=== PATIENT | female | born 1950 | race Caucasian/White ===

== ENCOUNTER 2018-12-12 19:30 | Inpatient (IN) | payer MEDICARE, OTHER ==
[2018-12-12 20:54] LABS: #Basophils 0.1 thou/uL (0.0-0.2); #Eosinphils 0.1 thou/uL (0.0-0.7); #Lymphocytes 1.7 thou/uL (1.20-3.40); #Neutrophils 5.7 thou/uL (1.40-6.50); %Basophils 0.9 % (0.0-1.0); %Eosinophils 0.9 % (0.0-10.0); %Lymphocytes 20.1 % (21.0-51.0); %Monocytes 11.2 % (0.0-10.0); %Neutrophils 66.9 % (42.0-75.0); Hemoglobin 10.2 g/dL (12.0-16.0); Mean Corpuscular HGB CONC 32.6 g/dL (32.0-36.0); Mean Corpuscular Hemoglobin 29.8 pg (27.0-31.0); Mean Corpuscular Volume 91.4 fL (78.0-98.0); Mean Platelet Volume 6.5 fL (7.4-10.4); Platelet Count 287 thou/uL (130-400); Red Blood Cell (RBC) Count 3.43 mill/uL (4.20-5.40); White Blood Cell (WBC) Count 8.6 thou/uL (4.8-10.8)
[2018-12-12 20:57] LABS: CKMB 6.6 ng/mL (0-6.6)
[2018-12-12] MEDS ORDERED: Dextrose 50% Abboject 50 ML SYRINGE SLOW IVP PRN (21:25)
[2018-12-12] MEDS ORDERED: HumaLOG 300 UNITS/3 ML VIAL SC PRN (21:25)
[2018-12-12] MEDS ORDERED: Dextrose 5% in Water 1,000 ML IV PRN (21:25)
[2018-12-12 21:36] LABS: ALT (SGPT) Less than 7 U/L (8-55); AST (SGOT) 14 U/L (5-34); Albumin 3.4 g/dL (3.4-4.8); Alkaline Phosphatase 74 U/L (40-150); Anion Gap 12 mmol/L (10-20); BUN (Urea Nitrogen) 24 mg/dL (9.8-20.1); Bilirubin, Total 0.5 mg/dL (0.2-1.2); Calc. Creatinine Clearance 0 mL/min (70-130); Calcium 8.8 mg/dL (7.8-10.44); Carbon Dioxide 25 mmol/L (23-31); Chloride 108 mmol/L (98-107); Estimated GFR-MDRD 61; Globulin 2.5 g/dL (2.4-3.5); Glucose 137 mg/dL (80-115); Potassium 4.2 mmol/L (3.5-5.1); Protein, Total 5.9 g/dL (6.0-8.3); Sodium 141 mmol/L (136-145)
[2018-12-12 23:10] LABS: INR-International Normal Ratio 1.2; Prothrombin Time 15.5 SEC (12.0-14.7)
[2018-12-12 23:31] LABS: Critical Call Chem Troponin I RESULT DECREASING; Troponin I 1.689 ng/mL (< 0.028)
[2018-12-13] MEDS ORDERED: Morphine 4 MG/ML VIAL SLOW IVP PRN (00:23)
[2018-12-13] MEDS ORDERED: Nitroglycerin 0.4 MG TAB (25 Tab Bottle) SL PRN ×2 (00:23→15:13)
[2018-12-13] MEDS ORDERED: Ondansetron PF 4 MG/2 ML Vial IVP PRN (00:23)
[2018-12-13 02:38] LABS: Critical Call Chem Troponin I RESULT DECREASING; Troponin I 1.395 ng/mL (< 0.028)
--- NOTE | 2018-12-13 04:16 | HP ---
PRIMARY CARE PHYSICIAN: Dr. Cruz at [facility]. CHIEF COMPLAINT: Shortness of breath and fatigue. HISTORY OF PRESENT ILLNESS: The patient is a 68-year-old female with past medical history of diabetes, insulin-dependent, and hyperlipidemia, who presents to the emergency department with shortness of breath that has been worsening over the past 2 weeks. The patient denies any history of heart problems including no history of heart failures in the past. The patient denies any chest pain. The patient was seen at the [facility] and transferred after being seen by her cafe or restaurant manager there. The patient was given Lasix and Lovenox full dose. The patient was noted to have elevated BNP of 1100 and troponin positive of 1.94. The patient also had a D-dimer positive. CT angiogram of her chest ruled out PE, but noted to have small to moderate bilateral pleural effusion. The patient does not use oxygen at home. The patient smokes on and off, denies at this point. PAST MEDICAL HISTORY: 1. Diabetes. 2. Hyperlipidemia. PAST SURGICAL HISTORY: 1. Tonsillectomy. 2. Colonoscopy. SOCIAL HISTORY: The patient smokes on occasions. The patient is . Denies any alcohol or illicit drugs at this point. ALLERGIES: DENIES ANY KNOWN ALLERGIES TO MEDICATIONS. FAMILY HISTORY: Significant for coronary artery disease of her father. REVIEW OF SYSTEMS: GENERAL: Reports fatigue and shortness of breath. EYES: Denies any visual changes. EARS: Denies any changes to her hearing. NOSE: Denies any problem with her nose including no new nose bleeding. THROAT: Denies any sore throat. RESPIRATIONS: Reports cough, pure white sputum. CARDIOVASCULAR: Reports dyspnea on exertion. GI: Denies nausea, vomiting, or diarrhea. MUSCULOSKELETAL: Reports bilateral lower extremity edema. SKIN: Negative for rashes. NEUROLOGIC: Denies any confusion. PSYCHIATRIC: Denies any mood disorders. PHYSICAL EXAMINATION: VITAL SIGNS: Blood pressure and heart rate are noted to be within normal limits , respiration rate in 30s. CONSTITUTIONAL: Vitals were reviewed. The patient is afebrile. Normal pulses. HEAD: Atraumatic. EYES: Equal ocular eye movements of the muscles of her eyes. EARS: No gross deformity noted. NOSE: No gross deformity noted. THROAT: No exudate noted. NECK: No lymphadenopathy or JVD noted. RESPIRATIONS: Bilateral crackles noted. No wheezes, rubs, or gallops. The patient was noted to be tachypneic. CARDIOVASCULAR: No murmur, rubs, or gallops. Regular rate and rhythm. ABDOMEN: Soft, nontender, bowel sounds positive. EXTREMITIES: Bilateral 3+ edema noted. NEUROLOGIC: Alert. SKIN: No rashes. PSYCHIATRIC: Normal mood and cooperative. DIAGNOSTIC STUDIES: CT angio of the chest noted to have bilateral pleural effusions and no PE noted at the outside facility. EKG negative for a STEMI. Significant labs include BNP from outside hospital 1100, troponin 1.9 at outside hospital, repeat is 2.148. Other significant labs reviewed including CBC and BMP, all noted to be within normal limits. ASSESSMENT AND PLAN: 1. Non-ST segment elevation myocardial infarction. The patient has positive troponin, likely stress-induced from congestive heart failure, which is a new diagnosis. Cardiology be consulted for a.m., tele, trend troponin. The patient was given aspirin and full dose Lovenox at outside ER. We will continue Lovenox b.i.d. We will admit to tele at this point. We will start the patient on aspirin. 2. Acute congestive heart failure, type and cause unknown at this point. Cardiology consult at a.m. Order placed. We will start Lasix 40 mg IV twice per day. Fluid restriction. Cardiac diet. Echocardiogram in the morning. Ordered tele. We will look at lipid panel in the morning and a.m. labs. 3. Diabetes. We will hold home Januvia and metformin at this point. Continue home Lantus 15 units daily plus SSI low-scale. 4. The patient is full code. 5. Medical power of ip technology transactions attorney, the patient wants her and then her daughter to be medical power of ip technology transactions attorney. 6. Deep venous thrombosis prophylaxis addressed. Job ID: [id number] MTDD
[2018-12-13 06:02] LABS: #Basophils 0.1 thou/uL (0.0-0.2); #Eosinphils 0.3 thou/uL (0.0-0.7); #Lymphocytes 1.6 thou/uL (1.20-3.40); #Monocytes 0.8 thou/uL (0.11-0.59); #Neutrophils 2.9 thou/uL (1.40-6.50); %Basophils 0.9 % (0.0-1.0); %Lymphocytes 28.5 % (21.0-51.0); %Monocytes 14.6 % (0.0-10.0); Hemoglobin 9.8 g/dL (12.0-16.0); Mean Corpuscular HGB CONC 31.2 g/dL (32.0-36.0); Mean Corpuscular Hemoglobin 28.9 pg (27.0-31.0); Mean Corpuscular Volume 92.5 fL (78.0-98.0); Mean Platelet Volume 6.9 fL (7.4-10.4); Platelet Count 281 thou/uL (130-400); RBC Distribution Width 13.1 % (11.5-14.5); Red Blood Cell (RBC) Count 3.38 mill/uL (4.20-5.40); White Blood Cell (WBC) Count 5.7 thou/uL (4.8-10.8)
[2018-12-13] MEDS: Furosemide 40 MG/4 ML VIAL SLOW IVP SCH ×2 (06:15→16:58)
[2018-12-13 06:31] LABS: ALT (SGPT) Less than 7 U/L (8-55); AST (SGOT) 14 U/L (5-34); Alkaline Phosphatase 65 U/L (40-150); Anion Gap 13 mmol/L (10-20); BUN (Urea Nitrogen) 24 mg/dL (9.8-20.1); Bilirubin, Total 0.4 mg/dL (0.2-1.2); Calc. Creatinine Clearance 80 mL/min (70-130); Calcium 8.4 mg/dL (7.8-10.44); Carbon Dioxide 23 mmol/L (23-31); Cardiac Risk 4.2 (Less than 4.5); Chloride 109 mmol/L (98-107); Cholesterol 126 mg/dl (< 200 Desired); Estimated GFR-MDRD 70; Globulin 2.3 g/dL (2.4-3.5); Glucose 107 mg/dL (80-115); HDL Cholesterol 30 mg/dL (>60 Neg Risk); LDL Cholesterol, Calculated 75 mg/dL; Magnesium 1.8 mg/dL (1.6-2.6); Potassium 3.9 mmol/L (3.5-5.1); Protein, Total 5.3 g/dL (6.0-8.3); Sodium 141 mmol/L (136-145); Triglycerides 104 mg/dL (Less than 150)
[2018-12-13] MEDS ORDERED: Enoxaparin Sodium 40 MG/0.4 ML SYRINGE SC SCH (09:00)
[2018-12-13] MEDS ORDERED: Iopamidol 370 76% 100 ML VIAL ONE (09:21)
[2018-12-13] MEDS ORDERED: Iopamidol 370 76% 50 ML VIAL FS ONE (09:21)
[2018-12-13] MEDS ORDERED: Lidocaine 1% (PF) 30 ML VIAL ONE (13:40)
[2018-12-13] MEDS ORDERED: Midazolam HCl 2 mg/2 ml Vial ONE (13:40)
[2018-12-13] MEDS ORDERED: Fentanyl 100 MCG/2 ML VIAL ONE (13:40)
[2018-12-13] MEDS ORDERED: Sodium Chloride 0.9% 1,000 ML IV SCH ×2 (13:45→15:15)
[2018-12-13] MEDS ORDERED: Communication Order-Pharmacy FS SCH ×2 (13:45→15:29)
[2018-12-13] MEDS ORDERED: Heparin 10,000 UNITS/1 ML VIAL ONE (13:51)
[2018-12-13] MEDS ORDERED: Protamine Sulfate 50 MG/5 ML VIAL ONE (15:05)
[2018-12-13] MEDS ORDERED: traMADol HCl 50 MG TAB PO PRN (15:13)
[2018-12-13] MEDS ORDERED: Acetaminophen/Codeine 30-300mg Tablet PO PRN ×2 (15:13)
[2018-12-13] MEDS ORDERED: Sodium Chloride 0.9% 200 ML IV PRN (15:15)
--- NOTE | 2018-12-13 16:52 | CON ---
DATE OF CONSULTATION: HISTORY OF PRESENT ILLNESS: This is a 68-year-old insulin-dependent diabetic female with fatigue, dyspnea on exertion, and edema for the past 2 weeks. She was seen in [place], where she was found to have an elevated BNP of greater than 1000, elevated troponin I of 1.9, transferred here. PAST MEDICAL HISTORY: Includes diabetes mellitus. Her hemoglobin A1c about a year ago was 13 and she was begun on insulin, Januvia, metformin. Six months ago, her hemoglobin A1c was 7. She has also has a history of dyslipidemia, being started on statins this past year as well. She has no history of hypertension. She does have a history of smoking for many years on and off. PAST SURGICAL HISTORY: Includes tonsillectomy and colonoscopy. SOCIAL HISTORY: The patient is . She is followed by Dr. Cruz in [place]. MEDICATIONS: Include; 1. Januvia 50. 2. Metformin of 1000 b.i.d. 3. Lantus insulin 15 a day. 4. Atorvastatin 40 a day. ALLERGIES: NONE KNOWN. PHYSICAL EXAMINATION: VITAL SIGNS: The patient is 63 inches tall, with a recorded weight of 167, having weight about 140 pounds a year ago. NECK: No carotid bruits. LUNGS: Clear to auscultation anteriorly. CARDIAC: Regular rate and rhythm. No murmurs. ABDOMEN: Soft, obese, and nontender. EXTREMITIES: She has 1+ pitting edema in both lower extremities. She has a posterior tibial pulse on the right and I am unable to palpate a posterior tibial pulse on the left. She has a dressing on the right groin. NEUROLOGIC: The patient has no focal neurologic deficits. She is somewhat dyspneic, unable to complete a full sentence without stopping to catch her breath. DIAGNOSTIC DATA: Chest x-ray, bilateral pleural effusions, confirmed on CT angiography of the chest with no ascending aortic calcifications, calcifications in the coronaries. Hemoglobin about 10. Creatinine about 1. Cardiac cath shows a very small coronary arteries with 30% to 40% mid right coronary stenosis. Her LAD has a heavy calcification involving the LAD diagonal with about an 80% stenosis in the LAD proximal to the LAD diagonal takeoff and then another 80% to 90% stenosis at the LAD just distal to the diagonal takeoff. Circumflex consisted of 3 major branches, the first of which has mild disease. The second of which is smaller with about an 80% stenosis, and third of which has about a 60% to 70%. LVEF diminished at about 35%. LVEDP 10. ASSESSMENT AND PLAN: The patient with three-vessel coronary artery disease, although the right coronary artery disease is mild. The left anterior descending and circumflex are more critical. She has diminished left ventricular function and clinically is in congestive heart failure with peripheral edema, shortness of breath at rest, and bilateral pleural effusions. She was begun on IV diuresis yesterday evening and this will continue for the next couple of days with possible coronary artery bypass grafting on Sunday. Informed consent has been obtained. Job ID: [id number]
[2018-12-13] MEDS: Aspirin Chewable 81 MG TAB PO SCH (16:58)
[2018-12-13] MEDS ORDERED: Carvedilol 3.125 MG TAB PO SCH (17:00)
--- NOTE | 2018-12-13 19:47 | CON ---
DATE OF CONSULTATION: HISTORY OF PRESENT ILLNESS: Florinda Espinosa is a 68-year-old white female, who denies any previous cardiac problems. She denies ever having any chest arm, neck, or jaw discomfort. She has been having increasing fatigue over the last 3 weeks and family members have been noting that her legs are edematous. Family states she has been short of breath; however, Ms. Espinosa does not seem to agree with that. She does not have any PND or orthopnea. She then went yesterday to the hospital in [place] and was found to have a mildly elevated troponin I. She underwent CT angiogram of the chest, which revealed [id number] bilateral pleural effusions with bibasilar atelectasis and cardiomegaly. She apparently had no evidence of pulmonary embolism. Chest x-ray revealed bilateral pleural effusions. She was then transferred here for further evaluation. PAST MEDICAL HISTORY: Diabetes, hyperlipidemia. She was on blood pressure medicines in the past, but those were apparently discontinued when she was in the hospital with what sounds like pneumonia in November 2017. She has not been back on blood pressure medicine since. PAST SURGICAL HISTORY: Tonsillectomy. CURRENT MEDICATIONS: 1. Atorvastatin 40 daily. 2. Metformin 1000 mg b.i.d. 3. Januvia 50 mg daily. ALLERGIES: NONE. SOCIAL HISTORY: She smokes up to a pack per day, but states she does this intermittently. Occasionally drinks. FAMILY HISTORY: Father had bypass surgery. REVIEW OF SYSTEMS: A 12-point review of systems is otherwise unremarkable. PHYSICAL EXAMINATION: VITAL SIGNS: Blood pressure 177/73 and pulse of 91. HEENT: PERRL. NECK: Supple. CHEST: Reveals crackles at the bases. CARDIOVASCULAR: S1 and S2 normal without any S3, S4, or murmurs. ABDOMEN: Normal bowel sounds without tenderness or organomegaly. EXTREMITIES: Revealed 1 to 2+ pretibial edema. NEUROLOGIC: Grossly intact. SKIN: Warm and dry. LABORATORY DATA: EKG revealed normal sinus rhythm with poor R-wave progression V1 to V3 consistent with possible septal infarction. Echocardiogram revealed ejection fraction of 40% to 45% with mild mitral regurgitation, aortic valvular sclerosis , and mild tricuspid regurgitation. Hemoglobin 9.8, hematocrit 31.2, white count 5700, platelets 281,000. INR 1.2. Sodium 141, potassium 3.9, chloride 109, carbon dioxide 23, BUN 24, creatinine 0.82. Troponin I 2.148. BNP 1195.5. Cholesterol 126, triglycerides 104, HDL 30, and LDL 75. IMPRESSION: 1. [id number] myocardial infarction. 2. Mild left ventricular dysfunction with ejection fraction of 40% to 45%, which probably is an ischemic cardiomyopathy. 3. Chronic systolic heart failure. 4. Probable hypertension, not treated. 5. Hypercholesterolemia, poorly controlled with LDL of 75 in a diabetic. 6. Diabetes. 7. Smoker. 8. Positive family history. PLAN: Situation discussed with the patient. Carvedilol should be added and she will need to be gently diuresed. It is recommended that she undergo cardiac catheterization today to better define her anatomy. Risks were discussed including , myocardial infarction, dye reaction, vascular injury, CVA, transfusion, limb loss, renal loss, etc. Risks of intervention with PTCA and stent placement were discussed including , myocardial infarction, emergent CABG, restenosis, stent thrombosis, vessel perforation, etc. She has never had any gastrointestinal bleeding. She has never had a stroke. She does not have any upcoming surgeries and overall is recommended that a drug-eluting stent be placed if needed. Job ID: [id number] LENCHO
[2018-12-13] MEDS: Atorvastatin Calcium 40 MG TAB PO SCH (20:05)
[2018-12-13] MEDS ORDERED: Insulin Glargine 15 UNITS in Pre-Filled Syringe 1 EACH SC SCH (21:00)
[2018-12-13] MEDS ORDERED: Atorvastatin Calcium 40 MG TAB PO SCH (21:00)
--- NOTE | 2018-12-13 21:18 | PDOC.PN ---
- Subjective Encounter Start Date: 12/13/18 Encounter Start Time: 11:10 Reviewed the record and stalin's patient. She has had edema for two weeks. She has had periph edema during that time as well. Denies and antecedent viral syndrome. - Objective Resuscitation Status - Order Detail: 12/12/18 23:40 Resuscitation Status Routine Resuscitation Status: FULL: Full Resuscitation Vital Signs & Weight: Vital Signs (12 hours) Temp Pulse Resp BP Pulse Ox 12/13/18 15:35 98.2 F 94 16 164/77 H 93 L 12/13/18 12:10 98.4 F 91 20 177/73 H 94 L Weight Weight 167 lb 12.8 oz I&O: 12/12/18 12/13/18 12/14/18 06:59 06:59 06:59 Intake Total 240 740 Output Total 930 Balance 240 -190 Result Diagrams: 12/13/18 05:29 12/13/18 05:29 Additional Labs: Accuchecks 12/13/18 05:03 POC Glucose 122 H Phys Exam - Physical Examination Constitutional: NAD Neck: no JVD Respiratory: no wheezing, no rales Cardiovascular: RRR I-II/ M Gastrointestinal: soft, non-tender 3+ pitting edema of the LE's Neurological: non-focal Psychiatric: normal affect, A&O x 3 Dx/Plan (1) NSTEMI (non-ST elevated myocardial infarction) Code(s): I21.4 - NON-ST ELEVATION (NSTEMI) MYOCARDIAL INFARCTION Status: Acute (2) Peripheral edema Code(s): R60.9 - EDEMA, UNSPECIFIED Status: Acute (3) Hypertension Code(s): I10 - ESSENTIAL (PRIMARY) HYPERTENSION Status: Acute (4) Hyperlipidemia Code(s): E78.5 - HYPERLIPIDEMIA, UNSPECIFIED Status: Acute (5) Diabetes mellitus Code(s): E11.9 - TYPE 2 DIABETES MELLITUS WITHOUT COMPLICATIONS Status: Acute (6) Tobacco abuse Code(s): Z72.0 - TOBACCO USE Status: Acute - Plan * Discussed with patient at length. * Anticipate cath. * Echo pending. * Continue current plan.
[2018-12-14] MEDS: Furosemide 40 MG/4 ML VIAL SLOW IVP SCH ×2 (06:02→15:52)
[2018-12-14 07:03] LABS: Anion Gap 10 mmol/L (10-20); BUN (Urea Nitrogen) 25 mg/dL (9.8-20.1); Calc. Creatinine Clearance 69 mL/min (70-130); Calcium 8.5 mg/dL (7.8-10.44); Carbon Dioxide 28 mmol/L (23-31); Chloride 106 mmol/L (98-107); Estimated GFR-MDRD 59; Glucose 112 mg/dL (80-115); Potassium 3.7 mmol/L (3.5-5.1); Sodium 140 mmol/L (136-145)
[2018-12-14 07:07] LABS: Critical Call Chem Troponin I RESULT DECREASING; Troponin I 0.771 ng/mL (< 0.028)
[2018-12-14] MEDS ORDERED: Sodium Chloride 0.9% 10 ML ONE (08:07)
[2018-12-14] MEDS: Aspirin Chewable 81 MG TAB PO SCH (08:34)
[2018-12-14] MEDS: Carvedilol 6.25 MG TAB PO SCH ×2 (08:34→17:30)
[2018-12-14] MEDS: Acetaminophen 325 MG TAB PO PRN (08:43)
--- NOTE | 2018-12-14 13:06 | PDOC.PN ---
- Subjective Encounter Start Date: 12/14/18 Encounter Start Time: 10:15 Doing well. Understands all that is happening. No CP. Voiding well. - Objective Resuscitation Status - Order Detail: 12/12/18 23:40 Resuscitation Status Routine Resuscitation Status: FULL: Full Resuscitation Vital Signs & Weight: Vital Signs (12 hours) Temp Pulse Pulse Pulse Resp BP BP 12/14/18 10:36 75 77 112/55 L 12/14/18 08:34 177/74 H 12/14/18 08:13 98.3 F 81 18 12/14/18 04:00 98.4 F 77 18 BP BP BP Pulse Ox 12/14/18 10:36 104/53 L 12/14/18 08:34 12/14/18 08:13 177/74 H 98 12/14/18 04:00 145/65 H 93 L Weight Weight 164 lb 14.4 oz I&O: 12/13/18 12/14/18 12/15/18 06:59 06:59 06:59 Intake Total 240 1740 Output Total 1280 Balance 240 460 Result Diagrams: 12/13/18 05:29 12/14/18 06:14 Phys Exam - Physical Examination Constitutional: NAD Respiratory: no wheezing, no rales Cardiovascular: RRR, no significant murmur, no rub Gastrointestinal: soft, non-tender, no distention, positive bowel sounds 2+ pitting edema of BLE's. Psychiatric: normal affect, A&O x 3 Dx/Plan (1) NSTEMI (non-ST elevated myocardial infarction) Code(s): I21.4 - NON-ST ELEVATION (NSTEMI) MYOCARDIAL INFARCTION Status: Acute (2) Coronary artery disease Code(s): I25.10 - ATHSCL HEART DISEASE OF [place] CORONARY ARTERY W/O ANG PCTRS Status: Acute (3) Ischemic cardiomyopathy Code(s): I25.5 - ISCHEMIC CARDIOMYOPATHY Status: Acute (4) Acute systolic CHF (congestive heart failure), NYHA class 2 Code(s): I50.21 - ACUTE SYSTOLIC (CONGESTIVE) HEART FAILURE Status: Acute (5) Peripheral edema Code(s): R60.9 - EDEMA, UNSPECIFIED Status: Acute (6) Hypertension Code(s): I10 - ESSENTIAL (PRIMARY) HYPERTENSION Status: Acute (7) Hyperlipidemia Code(s): E78.5 - HYPERLIPIDEMIA, UNSPECIFIED Status: Acute (8) Diabetes mellitus Code(s): E11.9 - TYPE 2 DIABETES MELLITUS WITHOUT COMPLICATIONS Status: Acute (9) Tobacco abuse Code(s): Z72.0 - TOBACCO USE Status: Acute - Plan * Presented with evidence of CHF for a couple of weeks. * Echo with EF 35% * Heart cath with multivessel disease. * [facility] anticipating surgery on Sunday. * Diuresing to address the decompensated CHF from the ischemic CM. * Blood sugars well controlled. Accuchecks. SSI. * Resume the Lovenox for now.
[2018-12-14] MEDS: Atorvastatin Calcium 40 MG TAB PO SCH (21:29)
[2018-12-14] MEDS: Enoxaparin Sodium 40 MG/0.4 ML SYRINGE SC SCH (21:30)
[2018-12-15 05:08] LABS: Hemoglobin A1c 6.9 % (4.0-6.0)
[2018-12-15 05:13] LABS: Anion Gap 13 mmol/L (10-20); BUN (Urea Nitrogen) 33 mg/dL (9.8-20.1); Calc. Creatinine Clearance 49 mL/min (70-130); Calcium 8.6 mg/dL (7.8-10.44); Carbon Dioxide 27 mmol/L (23-31); Chloride 104 mmol/L (98-107); Estimated GFR-MDRD 39; Glucose 141 mg/dL (80-115); Sodium 140 mmol/L (136-145)
[2018-12-15] MEDS: Furosemide 40 MG/4 ML VIAL SLOW IVP SCH (05:34)
[2018-12-15] MEDS: Carvedilol 6.25 MG TAB PO SCH ×2 (08:08→16:37)
[2018-12-15] MEDS: Aspirin Chewable 81 MG TAB PO SCH (08:08)
[2018-12-15] MEDS: Enoxaparin Sodium 40 MG/0.4 ML SYRINGE SC SCH (08:09)
[2018-12-15] MEDS: Acetaminophen 325 MG TAB PO PRN (08:09)
--- NOTE | 2018-12-15 09:47 | RAD ---
SINGLE VIEW OF THE CHEST: COMPARISON: None. HISTORY: CHF. FINDINGS: A single view of the chest shows a cardiomediastinal silhouette which is upper limits of normal in si ze. Small bilateral pleural effusions with adjacent atelectasis are seen. IMPRESSION: Bilateral pleural effusions with adjacent atelectasis. POS: H
[2018-12-15] MEDS ORDERED: Furosemide 40 MG/4 ML VIAL SLOW IVP SCH (10:15)
--- NOTE | 2018-12-15 10:42 | PDOC.PN ---
- Subjective Encounter Start Date: 12/15/18 Encounter Start Time: 10:41 Doing well. No new complaints. - Objective Resuscitation Status - Order Detail: 12/12/18 23:40 Resuscitation Status Routine Resuscitation Status: FULL: Full Resuscitation Vital Signs & Weight: Vital Signs (12 hours) Temp Pulse Pulse Pulse Resp BP BP 12/15/18 09:02 73 73 106/53 L 12/15/18 08:08 144/65 H 12/15/18 07:12 98.4 F 76 16 12/15/18 04:00 98.0 F 74 18 BP BP Pulse Ox 12/15/18 09:02 128/60 12/15/18 08:08 12/15/18 07:12 144/65 H 93 L 12/15/18 04:00 142/65 H 95 Weight Weight 168 lb 3 oz I&O: 12/14/18 12/15/18 12/16/18 06:59 06:59 06:59 Intake Total 1740 960 Output Total 1280 400 Balance 460 560 Result Diagrams: 12/13/18 05:29 12/15/18 04:30 Additional Labs: Accuchecks 12/15/18 12/14/18 06:02 20:23 POC Glucose 162 H 267 H Phys Exam - Physical Examination Constitutional: NAD Respiratory: no wheezing, no rales Diminished breath sounds at bases. Decreased fremitus. Slightly better today. Mild right basilar rales. Cardiovascular: RRR, no significant murmur Gastrointestinal: soft, non-tender, no distention, positive bowel sounds 2-3+ edema BLE's. Psychiatric: normal affect, A&O x 3 Dx/Plan (1) NSTEMI (non-ST elevated myocardial infarction) Code(s): I21.4 - NON-ST ELEVATION (NSTEMI) MYOCARDIAL INFARCTION Status: Acute (2) Coronary artery disease Code(s): I25.10 - ATHSCL HEART DISEASE OF [place] CORONARY ARTERY W/O ANG PCTRS Status: Acute (3) Ischemic cardiomyopathy Code(s): I25.5 - ISCHEMIC CARDIOMYOPATHY Status: Acute (4) Acute systolic CHF (congestive heart failure), NYHA class 2 Code(s): I50.21 - ACUTE SYSTOLIC (CONGESTIVE) HEART FAILURE Status: Acute (5) Peripheral edema Code(s): R60.9 - EDEMA, UNSPECIFIED Status: Acute (6) Hypertension Code(s): I10 - ESSENTIAL (PRIMARY) HYPERTENSION Status: Acute (7) Hyperlipidemia Code(s): E78.5 - HYPERLIPIDEMIA, UNSPECIFIED Status: Acute (8) Diabetes mellitus Code(s): E11.9 - TYPE 2 DIABETES MELLITUS WITHOUT COMPLICATIONS Status: Acute (9) Tobacco abuse Code(s): Z72.0 - TOBACCO USE Status: Acute (10) Pleural effusion Code(s): J90 - PLEURAL EFFUSION, NOT ELSEWHERE CLASSIFIED Status: Acute - Plan * Diuresing well, but now has some mild prerenal azotemia. Had lasix this morning. Will hold for now. * Pleural effusions sound a little better. * Possible surg tomorrow. * Blood pressure and blood sugars are adequately controlled. * On ASA and statin.
[2018-12-15] MEDS: Atorvastatin Calcium 40 MG TAB PO SCH (20:51)
[2018-12-15] MEDS ORDERED: HumaLOG 300 UNITS/3 ML VIAL SC PRN (21:41)
[2018-12-15] MEDS ORDERED: Dextrose 5% in Water 1,000 ML IV PRN (21:41)
[2018-12-16] MEDS: Carvedilol 6.25 MG TAB PO SCH (05:55)
[2018-12-16 06:20] LABS: Anion Gap 16 mmol/L (10-20); BUN (Urea Nitrogen) 37 mg/dL (9.8-20.1); Calc. Creatinine Clearance 49 mL/min (70-130); Calcium 8.8 mg/dL (7.8-10.44); Carbon Dioxide 23 mmol/L (23-31); Chloride 103 mmol/L (98-107); Estimated GFR-MDRD 39; Glucose 142 mg/dL (80-115); Potassium 3.7 mmol/L (3.5-5.1); Sodium 138 mmol/L (136-145)
[2018-12-16] MEDS ORDERED: Fentanyl 250 MCG/5 ML VIAL ONE (06:45)
[2018-12-16] MEDS ORDERED: Midazolam HCl 5 mg/5 ml Vial ONE (06:45)
[2018-12-16] MEDS ORDERED: Vecuronium 10 MG VIAL ONE ×2 (06:46→16:39)
[2018-12-16] MEDS ORDERED: Dexmedetomidine 200 MCG/2 ML VIAL ONE (06:46)
[2018-12-16] MEDS ORDERED: Norepinephrine 8 MG/0.9% NS 250 ML ONE (06:46)
[2018-12-16] MEDS ORDERED: Heparin 10,000 UNITS/1 ML VIAL 30,000 UNITS in Sodium Chloride 0.9% 1,000 ML FS SCH (07:00)
[2018-12-16] MEDS ORDERED: Midazolam HCl 2 mg/2 ml Vial ONE (07:07)
[2018-12-16] MEDS ORDERED: Insulin Regular 300 UNITS/3 ML VIAL ONE (08:11)
[2018-12-16] MEDS ORDERED: Dexamethasone 4 mg/ml Vial ONE (09:36)
[2018-12-16] MEDS ORDERED: Bupivacaine HCl 0.5%/Epinephrine 1:200,000/PF 30 ml Vial ONE (09:36)
[2018-12-16] MEDS ORDERED: Bisacodyl 10 MG SUPP PR PRN (11:15)
[2018-12-16] MEDS ORDERED: Hetastarch 6% 500 ML 500 ML IVPB PRN (11:15)
[2018-12-16] MEDS ORDERED: HYDROcodone/Acetaminophen 5/325 mg Tablet PO PRN ×2 (11:15)
[2018-12-16] MEDS ORDERED: Post-Op Insulin Drip Protocol IVPB ONE (11:15)
[2018-12-16] MEDS ORDERED: Acetaminophen 325 MG TAB PO PRN (11:15)
[2018-12-16] MEDS ORDERED: Mag-Al 1200 mg/1200 mg/30 ML UDCUP PO PRN (11:15)
[2018-12-16] MEDS ORDERED: Bisacodyl 5 MG TAB PO PRN (11:15)
[2018-12-16] MEDS ORDERED: hydrALAZINE 20 MG/ML VIAL SLOW IVP PRN (11:15)
[2018-12-16] MEDS ORDERED: Guaifenesin DM 100-10/5 ML UDCUP PO PRN (11:15)
[2018-12-16] MEDS ORDERED: Norepinephrine 8 MG/0.9% NS 250 ML IVPB PRN (11:15)
[2018-12-16] MEDS ORDERED: Nitroglycerin 50 MG/250 ML BOT 250 ML IVPB PRN (11:15)
[2018-12-16] MEDS ORDERED: Dextrose 5% in Water 1,000 ML IV PRN (11:45)
[2018-12-16] MEDS ORDERED: HUMULIN R 100 UNITS in Sodium Chloride 0.9% 100 ML IVPB SCH (11:45)
[2018-12-16] MEDS ORDERED: Magnesium 2 GM/50 ML 2 GM in Premix Bag 1 BAG IVPB SCH (11:45)
[2018-12-16] MEDS ORDERED: Dextrose 50% Abboject 50 ML SYRINGE SLOW IVP PRN (11:45)
[2018-12-16 12:07] LABS: Base Excess (BEa) -0.5 mEq/L (-2.0 to +3.0); Calcium, Ionized 1.13 mmol/L (1.12-1.30); Carboxyhemoglobin (COHb) 0.4 gm% (0.0-3.0); O2 Tension (PaO2) 349.7 mmHg (> 80.0); pH, Arterial 7.45 (7.35-7.45)
[2018-12-16 12:08] LABS: Puncture Site ALINE
[2018-12-16] MEDS: Insulin Regular 300 UNITS/3 ML VIAL SC PRN (12:11)
[2018-12-16 12:14] LABS: #Eosinphils 0.5 thou/uL (0.0-0.7); #Monocytes 1.3 thou/uL (0.11-0.59); #Neutrophils 13.6 thou/uL (1.40-6.50); %Basophils 0.3 % (0.0-1.0); %Lymphocytes 11.2 % (21.0-51.0); %Monocytes 7.4 % (0.0-10.0); %Neutrophils 78.1 % (42.0-75.0); Hemoglobin 10.4 g/dL (12.0-16.0); Mean Corpuscular HGB CONC 32.5 g/dL (32.0-36.0); Mean Corpuscular Hemoglobin 28.5 pg (27.0-31.0); Mean Corpuscular Volume 87.7 fL (78.0-98.0); Mean Platelet Volume 7.3 fL (7.4-10.4); Platelet Count 189 thou/uL (130-400); RBC Distribution Width 13.3 % (11.5-14.5); Red Blood Cell (RBC) Count 3.66 mill/uL (4.20-5.40); White Blood Cell (WBC) Count 17.4 thou/uL (4.8-10.8)
[2018-12-16] MEDS: Sodium Chloride 0.45% 1,000 ML IV SCH (12:17)
[2018-12-16 12:22] LABS: INR-International Normal Ratio 1.4; PTT 35.4 SEC (22.9-36.1); Prothrombin Time 17.1 SEC (12.0-14.7)
[2018-12-16] MEDS: DOBUTamine 500 mg/250 ml 250 ML IVPB SCH (12:32)
[2018-12-16 12:54] LABS: Anion Gap 12 mmol/L (10-20); BUN (Urea Nitrogen) 32 mg/dL (9.8-20.1); Calc. Creatinine Clearance 61 mL/min (70-130); Calcium 8.4 mg/dL (7.8-10.44); Carbon Dioxide 21 mmol/L (23-31); Chloride 110 mmol/L (98-107); Estimated GFR-MDRD 50; Glucose 122 mg/dL (80-115); Potassium 3.8 mmol/L (3.5-5.1); Sodium 139 mmol/L (136-145)
[2018-12-16] MEDS: Fentanyl 100 MCG/2 ML VIAL SLOW IVP PRN ×4 (13:22→20:46)
[2018-12-16] MEDS: Potassium Chloride 20 MEQ/100 ML PREMIX BAG IVPB PRN (13:41)
[2018-12-16] MEDS ORDERED: Ondansetron ODT 4 MG TAB ONE (13:41)
--- NOTE | 2018-12-16 13:48 | RAD ---
CHEST ONE VIEW: History: Post open heart surgery. Comparison: Prior day. FINDINGS: Patient is intubated with endotracheal tube tip above the gasper approximately 2.5 cm. Right subclavi an central venous catheter projects over the right atrium. Small effusions. Midline sternotomy wires. Mediastinal drains are present. IMPRESSION: Expected post-operative findings. POS: ANA MARÍA
--- NOTE | 2018-12-16 14:17 | OP ---
DATE OF PROCEDURE: 12/16/2018 PREOPERATIVE DIAGNOSES: Coronary artery disease and congestive heart failure. PROCEDURE PERFORMED: Coronary artery bypass graft x4, left internal mammary artery good flow to a 1.25 mm LAD about 1 cm distal to the takeoff the diagonal, saphenous vein to a 1.25 mm diagonal, saphenous vein to a 1.5 mm OM2 and 1.25 mm distal circ, vessels were felt to be too small to consider for reoperation. TRAFFIC WAREHOUSE SUPERVISOR: Dr. Barnes. TRANSFUSION: 2 units of packed red cells. DESCRIPTION OF PROCEDURE: After adequate anesthesia had been obtained, the patient was prepped and draped. Dr. Barnes did an endovascular vein harvest of the left greater saphenous vein while I performed a median sternotomy. Left internal mammary artery was harvested. Both pleura were entered and a liter of yellow fluid obtained from each side. Following this, mammary harvest was completed. The patient heparinized. Mammary divided distally and passed posterior to the thymus gland. Aorta and right atrium were cannulated. The heart was quite full. Cardiopulmonary bypass was instituted and vessels were inspected for grafting. Following this, the aorta was crossclamped and a liter of cold blood cardioplegia given through the aortic root. The right pleura was widely opened to allowed the heart to rotate into this pleura to allow access to the OM branches, which were small and heart was rather large. Distal anastomosis were all completed passing a 1-mm probe through each prior to tying the suture line. Following removal of the cross clamp, two proximal anastomosis performed on the aortic root with the vein graft from the distal circ and the diagonal. The OM2 vein graft was anastomosed to the side of the distal circ about a centimeter and half from the aorta. Following inspection of suture lines, the patient was weaned from cardiopulmonary bypass. Cannula was removed and protamine given systemically. Aortic cannulation site was secured with a 4-0 Prolene. Bilateral pleural and mediastinal tube were placed and the left pleura was then mostly closed with a running Vicryl suture. Sternum was then reapproximated with #7 interrupted wire using vancomycin paste on the sternal edges, platelet rich blood, and platelet poor plasma. Subcutaneous tissue and skin were closed in layers. Job ID: [id number]
[2018-12-16 14:29] LABS: Actual Bicarbonate (HCO3a) 20.3 mEq/L (22-28); Base Excess (BEa) -4.4 mEq/L (-2.0 to +3.0); CO2 Tension 35.9 mmHg (35.0-45.0); Calcium, Ionized 1.16 mmol/L (1.12-1.30); Hemoglobin (Hb) 12.6 g/dL (12.0-16.0); O2 Tension (PaO2) 103.6 mmHg (> 80.0); Potassium - ABG Lab 4.15 mmol/L (3.70-5.30); pH, Arterial 7.37 (7.35-7.45)
[2018-12-16 14:31] LABS: ALV-art Gradient 136.725 (0-20); Puncture Site ALINE
[2018-12-16] MEDS ORDERED: Thrombin 5000 UNITS/5 ML VIAL ONE (16:39)
[2018-12-16] MEDS ORDERED: Magnesium 5 GM/10 ML VIAL ONE (16:39)
[2018-12-16] MEDS ORDERED: Cardioplegic Soln 1,000 ML BAG ONE (16:39)
[2018-12-16] MEDS ORDERED: Potassium Chloride 60 MEQ/30 ML VIAL ONE (16:39)
[2018-12-16] MEDS ORDERED: Protamine Sulfate 250 MG/25 ML VIAL ONE (16:39)
[2018-12-16] MEDS ORDERED: Calcium Chloride 1 GM/10 ML Abboject SYRINGE ONE (16:39)
[2018-12-16] MEDS ORDERED: Albumin 25% 25 GM/100 ML BOT ONE (16:39)
[2018-12-16] MEDS ORDERED: Papaverine 60 MG/2 ML VIAL ONE (16:39)
[2018-12-16] MEDS ORDERED: Lidocaine 2% PF 100 mg/5 ml Syringe ONE (16:39)
[2018-12-16] MEDS ORDERED: Aminocaproic Acid 5 GM/20 ML VIAL ONE (16:39)
[2018-12-16] MEDS ORDERED: Heparin 5,000 UNITS/ML VIAL ONE (16:39)
[2018-12-16] MEDS ORDERED: Nitroglycerin 50 MG/250 ML BOT ONE (16:39)
[2018-12-16] MEDS ORDERED: Heparin 30,000 units/30 ml VIAL ONE (16:39)
[2018-12-16] MEDS ORDERED: Glycopyrrolate 0.2 MG/ML 5 ML SYRINGE ONE (16:39)
[2018-12-16] MEDS ORDERED: Mannitol 12.5 GM/50 ML ONE (16:39)
[2018-12-16] MEDS ORDERED: PROPOFOL 200 MG/20 ML VIAL ONE (16:39)
[2018-12-16] MEDS ORDERED: Sodium Bicarb 50 MEQ/50 ML VIAL ONE (16:39)
[2018-12-16 17:14] LABS: Hemoglobin 11.3 g/dL (12.0-16.0)
[2018-12-16 17:30] LABS: Potassium 4.2 mmol/L (3.5-5.1)
[2018-12-16] MEDS: Ondansetron PF 4 MG/2 ML Vial IVP PRN (18:11)
[2018-12-16] MEDS: Famotidine/PF 20 mg/2ml Vial SLOW IVP SCH (20:45)
[2018-12-16] MEDS: Simvastatin 40 MG TAB PO SCH (20:53)
--- NOTE | 2018-12-16 22:21 | PDOC.PN ---
- Subjective Encounter Start Date: 12/16/18 Encounter Start Time: 15:15 Subjective: f/u s/p CABG x 4v and extubated this pm. Remains on O2 NC. - Objective Resuscitation Status - Order Detail: 12/12/18 23:40 Resuscitation Status Routine Resuscitation Status: FULL: Full Resuscitation MAR Reviewed: Yes Vital Signs & Weight: Vital Signs (12 hours) Temp Pulse Resp BP Pulse Ox 12/16/18 19:00 98.8 F 12/16/18 16:00 97.9 F 98 12/16/18 13:31 78 188/70 H 12/16/18 12:10 67 167/64 H 12/16/18 12:00 96.6 F L 19 12/16/18 11:52 100 12/16/18 11:50 67 167/64 H Weight Weight 169 lb 3 oz Most Recent Monitor Data Heart Rate from ECG 99 NIBP 120/54 NIBP BP-Mean 76 Respiration from ECG 22 SpO2 97 I&O: 12/15/18 12/16/18 12/17/18 06:59 06:59 06:59 Intake Total 960 1200 473 Output Total 256 826 8658 Balance 560 450 -1112 Result Diagrams: 12/16/18 17:03 12/16/18 17:03 Additional Labs: Accuchecks 12/16/18 12/16/18 12/16/18 21:52 20:08 18:06 POC Glucose 115 H 139 H 144 H 12/16/18 12/16/18 12/16/18 16:58 15:34 14:21 POC Glucose 159 H 181 H 174 H 12/16/18 12/16/18 12/16/18 12:03 10:49 10:00 POC Glucose 127 H 107 136 H 12/16/18 12/16/18 12/16/18 09:25 08:48 08:01 POC Glucose 149 H 187 H 184 H 12/16/18 12/15/18 06:11 22:38 POC Glucose 163 H 262 H Laboratory Tests 12/12/18 12/13/18 12/14/18 20:45 05:29 06:14 WBC 8.6 5.7 Hgb 10.2 L 9.8 L Creatinine 0.94 Hemoglobin A1c 12/15/18 12/15/18 12/16/18 04:29 04:30 05:29 WBC Hgb Creatinine 1.34 H 1.36 H Hemoglobin A1c 6.9 H 12/16/18 12:05 WBC Hgb 10.4 L Creatinine Hemoglobin A1c Radiology Reviewed by me: Yes (PCXR - post-op changes noted) EKG Reviewed by me: Yes (Tele - SR) Phys Exam - Physical Examination Constitutional: NAD HEENT: PERRLA, sclera anicteric, oral pharynx no lesions Neck: no nodes, no JVD, supple, full ROM diminished in bases post-surgical changes on sternum, dressing in place Respiratory: no wheezing S1, S2 Cardiovascular: RRR, no significant murmur, no rub, gallop Gastrointestinal: soft, non-tender, no distention, positive bowel sounds Musculoskeletal: pulses present, edema present Neurological: normal sensation, moves all 4 limbs Skin: normal turgor, cap refill <2 seconds Dx/Plan (1) Acute systolic CHF (congestive heart failure), NYHA class 2 Code(s): I50.21 - ACUTE SYSTOLIC (CONGESTIVE) HEART FAILURE Status: Acute Comment: EF 45-50%, s/p 4v CABG, monitor fluid status, I/O's, daily weight (2) Coronary artery disease Code(s): I25.10 - ATHSCL HEART DISEASE OF [place] CORONARY ARTERY W/O ANG PCTRS Status: Acute Comment: s/p 4v CABG today, continue ASA, Zocor (3) Diabetes mellitus Code(s): E11.9 - TYPE 2 DIABETES MELLITUS WITHOUT COMPLICATIONS Status: Chronic Comment: ISS, serial accuchecks (4) Hyperlipidemia Code(s): E78.5 - HYPERLIPIDEMIA, UNSPECIFIED Status: Chronic Comment: Continue Zocor (5) Ischemic cardiomyopathy Code(s): I25.5 - ISCHEMIC CARDIOMYOPATHY Status: Chronic Comment: EF 45-50% (6) Tobacco abuse Code(s): Z72.0 - TOBACCO USE Status: Chronic Comment: Tobacco cessation resources - Plan PT/OT, social worker palliative care, respiratory therapy, DVT proph w/SCDs Continue post-CABG protocol -: Continue ASA, Zocor -: Pain control as clinically indicated -: Pulmonary supportive measures, Duonebs -: AM lab: BMP, CBC * .
[2018-12-17] MEDS: Ondansetron PF 4 MG/2 ML Vial IVP PRN ×3 (00:25→10:22)
[2018-12-17] MEDS: Fentanyl 100 MCG/2 ML VIAL SLOW IVP PRN ×3 (00:26→10:21)
[2018-12-17 04:51] LABS: #Lymphocytes 0.9 thou/uL (1.20-3.40); #Monocytes 1.2 thou/uL (0.11-0.59); #Neutrophils 14.7 thou/uL (1.40-6.50); %Basophils 0.2 % (0.0-1.0); %Lymphocytes 5.5 % (21.0-51.0); %Monocytes 7.3 % (0.0-10.0); Hemoglobin 10.2 g/dL (12.0-16.0); Mean Corpuscular HGB CONC 31.5 g/dL (32.0-36.0); Mean Platelet Volume 7.1 fL (7.4-10.4); Platelet Count 247 thou/uL (130-400); RBC Distribution Width 13.5 % (11.5-14.5); Red Blood Cell (RBC) Count 3.65 mill/uL (4.20-5.40); White Blood Cell (WBC) Count 16.9 thou/uL (4.8-10.8)
[2018-12-17 05:11] LABS: Anion Gap 10 mmol/L (10-20); BUN (Urea Nitrogen) 32 mg/dL (9.8-20.1); Calc. Creatinine Clearance 61 mL/min (70-130); Calcium 8.2 mg/dL (7.8-10.44); Carbon Dioxide 24 mmol/L (23-31); Chloride 110 mmol/L (98-107); Estimated GFR-MDRD 50; Glucose 98 mg/dL (80-115); Potassium 3.8 mmol/L (3.5-5.1); Sodium 140 mmol/L (136-145)
[2018-12-17] MEDS: Potassium Chloride 20 MEQ/100 ML PREMIX BAG IVPB PRN (06:15)
[2018-12-17] MEDS ORDERED: Promethazine HCl 25 MG/ML VIAL SLOW IVP PRN (06:39)
[2018-12-17] MEDS ORDERED: sitaGLIPtin Phosphate 25 MG TAB PO SCH (09:00)
[2018-12-17] MEDS ORDERED: Aspirin 325 MG TAB PO SCH (09:00)
--- NOTE | 2018-12-17 09:02 | RAD ---
CHEST ONE VIEW: History: Heart surgery. Follow up. Comparison: 12-16-18 FINDINGS: Cardiac silhouette is magnified by projection. Pulmonary vasculature less engorged than on the prior study. Bibasilar atelectasis is stable. Endotracheal catheter no longer visible. Other lines and tube s are in unchanged position. IMPRESSION: 1. Interval extubation. 2. Decrease in pulmonary vascular congestion. 3. Otherwise stable post-operative appearance of the chest. POS: [facility]
[2018-12-17] MEDS: Famotidine/PF 20 mg/2ml Vial SLOW IVP SCH ×2 (09:36→21:04)
[2018-12-17] MEDS: Alogliptin 6.25 MG TAB PO SCH (09:36)
[2018-12-17] MEDS: Sodium Chloride 0.45% 1,000 ML IV SCH (10:09)
[2018-12-17] MEDS ORDERED: Insulin Glargine 5 UNITS in Pre-Filled Syringe 1 EACH SC SCH (12:30)
[2018-12-17 13:45] LABS: Actual Bicarbonate (HCO3a) 23.4 mEq/L (22-28); Analyzer IN Cardio OR; Base Excess (BEa) 0.8 mEq/L (-2.0 to +3.0); CO2 Tension 29.8 mmHg (35.0-45.0); Calcium, Ionized 1.06 mmol/L (1.12-1.30); Carboxyhemoglobin (COHb) 0.9 gm% (0.0-3.0); Hemoglobin (Hb) 8.7 g/dL (12.0-16.0); O2 Tension (PaO2) 333.6 mmHg (> 80.0); Potassium - ABG Lab 3.52 mmol/L (3.70-5.30); pH, Arterial 7.51 (7.35-7.45)
[2018-12-17 13:46] LABS: Actual Bicarbonate (HCO3a) 24.1 mEq/L (22-28); Analyzer IN Cardio OR; Base Excess (BEa) 0.5 mEq/L (-2.0 to +3.0); CO2 Tension 34.5 mmHg (35.0-45.0); Calcium, Ionized 1.05 mmol/L (1.12-1.30); Carboxyhemoglobin (COHb) 0.8 gm% (0.0-3.0); Hemoglobin (Hb) 8.3 g/dL (12.0-16.0); O2 Tension (PaO2) 339.6 mmHg (> 80.0); Potassium - ABG Lab 3.31 mmol/L (3.70-5.30); pH, Arterial 7.46 (7.35-7.45)
[2018-12-17 13:47] LABS: Actual Bicarbonate (HCO3a) 25.8 mEq/L (22-28); Analyzer IN Cardio OR; Base Excess (BEa) -0.2 mEq/L (-2.0 to +3.0); CO2 Tension 49.9 mmHg (35.0-45.0); Calcium, Ionized 0.99 mmol/L (1.12-1.30); Carboxyhemoglobin (COHb) 0.9 gm% (0.0-3.0); Hemoglobin (Hb) 8.1 g/dL (12.0-16.0); Potassium - ABG Lab 3.79 mmol/L (3.70-5.30); pH, Arterial 7.33 (7.35-7.45)
[2018-12-17 13:47] LABS: Analyzer IN Cardio OR; Base Excess (BEa) 0.4 mEq/L (-2.0 to +3.0); CO2 Tension 47.8 mmHg (35.0-45.0); Calcium, Ionized 0.96 mmol/L (1.12-1.30); Carboxyhemoglobin (COHb) 1.7 gm% (0.0-3.0); Hemoglobin (Hb) 5.1 g/dL (12.0-16.0); pH, Arterial 7.35 (7.35-7.45)
[2018-12-17 13:48] LABS: Actual Bicarbonate (HCO3a) 25.4 mEq/L (22-28); Analyzer IN Cardio OR; CO2 Tension 39.5 mmHg (35.0-45.0); Calcium, Ionized 1.25 mmol/L (1.12-1.30); Carboxyhemoglobin (COHb) 0.8 gm% (0.0-3.0); Hemoglobin (Hb) 7.5 g/dL (12.0-16.0); O2 Tension (PaO2) 444.5 mmHg (> 80.0); Potassium - ABG Lab 3.79 mmol/L (3.70-5.30); pH, Arterial 7.43 (7.35-7.45)
[2018-12-17 13:57] LABS: Puncture Site ALINE
[2018-12-17 14:03] LABS: Puncture Site ALINE
[2018-12-17 14:04] LABS: Puncture Site ALINE
[2018-12-17 14:05] LABS: O2 Tension (PaO2) 559.6 mmHg (> 80.0); Puncture Site ALINE
[2018-12-17 14:06] LABS: Puncture Site ALINE
--- NOTE | 2018-12-17 14:38 | PDOC.PN ---
- Subjective Encounter Start Date: 12/17/18 Encounter Start Time: 14:30 Subjective: f/u s/p CABG x 4v POD #1. Remains on Nitro/Dobutamine gtt -: c/o lower back muscle spasms. - Objective Resuscitation Status - Order Detail: 12/12/18 23:40 Resuscitation Status Routine Resuscitation Status: FULL: Full Resuscitation MAR Reviewed: Yes Vital Signs & Weight: Vital Signs (12 hours) Temp 12/17/18 12:00 98.1 F 12/17/18 08:00 98.6 F 12/17/18 03:00 98.2 F Weight Weight 173 lb 4.533 oz Most Recent Monitor Data Heart Rate from ECG 91 NIBP 103/53 NIBP BP-Mean 69 Respiration from ECG 27 SpO2 95 I&O: 12/16/18 12/17/18 12/18/18 06:59 06:59 06:59 Intake Total 1200 1397 634 Output Total 750 2215 575 Balance 450 -818 59 Result Diagrams: 12/17/18 04:47 12/17/18 04:47 Additional Labs: Accuchecks 12/17/18 12/17/18 12/17/18 12:18 11:35 10:35 POC Glucose 125 H 124 H 128 H 12/17/18 12/17/18 12/17/18 09:31 08:03 06:22 POC Glucose 134 H 136 H 112 H 12/17/18 12/17/18 12/17/18 04:45 03:29 00:22 POC Glucose 102 111 H 125 H 12/16/18 12/16/18 12/16/18 23:13 21:52 20:08 POC Glucose 124 H 115 H 139 H 12/16/18 12/16/18 12/16/18 18:06 16:58 15:34 POC Glucose 144 H 159 H 181 H 12/16/18 12:03 POC Glucose 127 H Laboratory Tests 12/12/18 12/13/18 12/14/18 20:45 05:29 06:14 WBC 8.6 5.7 Hgb 10.2 L 9.8 L Creatinine 0.94 Hemoglobin A1c 12/15/18 12/15/18 12/16/18 04:29 04:30 05:29 WBC Hgb Creatinine 1.34 H 1.36 H Hemoglobin A1c 6.9 H 12/16/18 12:05 WBC 17.4 H Hgb 10.4 L Creatinine Hemoglobin A1c Radiology Reviewed by me: Yes (PCXR - decreased pulm vasc prominence) EKG Reviewed by me: Yes (Tele - SR) Phys Exam - Physical Examination Constitutional: NAD HEENT: PERRLA, sclera anicteric, oral pharynx no lesions Neck: no nodes, no JVD, supple, full ROM occasional rhonchi midline sternum incision CDI Respiratory: no wheezing Cardiovascular: RRR, no significant murmur, no rub, gallop Gastrointestinal: soft, non-tender, no distention, positive bowel sounds Musculoskeletal: no edema, pulses present Neurological: normal sensation, moves all 4 limbs Psychiatric: A&O x 3 Skin: normal turgor, cap refill <2 seconds Dx/Plan (1) Acute systolic CHF (congestive heart failure), NYHA class 2 Code(s): I50.21 - ACUTE SYSTOLIC (CONGESTIVE) HEART FAILURE Status: Acute Comment: EF 45-50%, s/p 4v CABG, monitor fluid status, I/O's, daily weight, wean Dobutamine gtt as clinically indicated (2) Coronary artery disease Code(s): I25.10 - ATHSCL HEART DISEASE OF [place] CORONARY ARTERY W/O ANG PCTRS Status: Acute Comment: s/p 4v CABG POD #1, continue ASA, Zocor (3) Diabetes mellitus Code(s): E11.9 - TYPE 2 DIABETES MELLITUS WITHOUT COMPLICATIONS Status: Chronic Comment: ISS, serial accuchecks (4) Hyperlipidemia Code(s): E78.5 - HYPERLIPIDEMIA, UNSPECIFIED Status: Chronic Comment: Continue Zocor (5) Ischemic cardiomyopathy Code(s): I25.5 - ISCHEMIC CARDIOMYOPATHY Status: Chronic Comment: EF 45-50% (6) Tobacco abuse Code(s): Z72.0 - TOBACCO USE Status: Chronic Comment: Tobacco cessation resources - Plan PT/OT, social services aide, respiratory therapy, out of bed/ambulate, DVT proph w/ SCDs continue post-CABG protocol -: Continue Dobutamine/Nitroglycerin weaning as clinically indicated -: Start Zanaflex 4mg BID -: OOB/chair -: Continue ASA/Zocor * AM lab: BMP, CBC
[2018-12-17] MEDS ORDERED: tiZANidine HCl 4 MG TAB PO SCH (15:00)
[2018-12-17] MEDS: DOBUTamine 500 mg/250 ml 250 ML IVPB SCH (15:51)
[2018-12-17] MEDS: Insulin Regular 300 UNITS/3 ML VIAL SC PRN (16:35)
[2018-12-17] MEDS: tiZANidine HCl 4 MG TAB PO SCH (21:04)
[2018-12-17] MEDS: Simvastatin 40 MG TAB PO SCH (21:04)
[2018-12-18 04:37] LABS: #Eosinphils 0.1 thou/uL (0.0-0.7); #Lymphocytes 0.9 thou/uL (1.20-3.40); #Monocytes 1.5 thou/uL (0.11-0.59); #Neutrophils 15.3 thou/uL (1.40-6.50); %Basophils 0.2 % (0.0-1.0); %Eosinophils 0.8 % (0.0-10.0); %Lymphocytes 4.8 % (21.0-51.0); %Monocytes 8.6 % (0.0-10.0); %Neutrophils 85.6 % (42.0-75.0); Mean Corpuscular HGB CONC 31.9 g/dL (32.0-36.0); Mean Corpuscular Hemoglobin 28.6 pg (27.0-31.0); Mean Corpuscular Volume 89.5 fL (78.0-98.0); Mean Platelet Volume 7.1 fL (7.4-10.4); Platelet Count 282 thou/uL (130-400); RBC Distribution Width 13.5 % (11.5-14.5); Red Blood Cell (RBC) Count 3.51 mill/uL (4.20-5.40); White Blood Cell (WBC) Count 17.9 thou/uL (4.8-10.8)
[2018-12-18] MEDS: Sodium Chloride 0.45% 1,000 ML IV SCH (04:48)
[2018-12-18 04:59] LABS: Anion Gap 12 mmol/L (10-20); BUN (Urea Nitrogen) 31 mg/dL (9.8-20.1); Calc. Creatinine Clearance 66 mL/min (70-130); Calcium 8.3 mg/dL (7.8-10.44); Carbon Dioxide 24 mmol/L (23-31); Chloride 107 mmol/L (98-107); Estimated GFR-MDRD 54; Glucose 118 mg/dL (80-115); Potassium 4.3 mmol/L (3.5-5.1); Sodium 139 mmol/L (136-145)
[2018-12-18] MEDS ORDERED: Bisacodyl 10 MG SUPP PR PRN (07:28)
[2018-12-18] MEDS ORDERED: Milk Of Magnesia 30 ML UDCUP PO PRN (07:28)
[2018-12-18] MEDS ORDERED: Bisacodyl 5 MG TAB PO PRN (07:28)
[2018-12-18] MEDS ORDERED: HYDROcodone/Acetaminophen 5/325 mg Tablet PO PRN (07:28)
[2018-12-18] MEDS ORDERED: Fentanyl 100 MCG/2 ML VIAL SLOW IVP PRN (07:28)
[2018-12-18] MEDS ORDERED: Guaifenesin DM 100-10/5 ML UDCUP PO PRN (07:28)
[2018-12-18] MEDS ORDERED: Ondansetron PF 4 MG/2 ML Vial IVP PRN (07:28)
[2018-12-18] MEDS ORDERED: Mineral Oil ENEMA PR PRN (07:28)
[2018-12-18] MEDS ORDERED: Acetaminophen 325 MG TAB PO PRN (07:28)
[2018-12-18] MEDS ORDERED: Nitroglycerin 0.4 MG TAB (25 Tab Bottle) SL PRN (07:28)
[2018-12-18] MEDS ORDERED: Mag-Al 1200 mg/1200 mg/30 ML UDCUP PO PRN (07:28)
[2018-12-18] MEDS ORDERED: Dextrose 50% Abboject 50 ML SYRINGE SLOW IVP PRN (07:40)
[2018-12-18] MEDS ORDERED: Dextrose 5% in Water 1,000 ML IV PRN (07:40)
[2018-12-18] MEDS ORDERED: DOBUTamine 500 mg/250 ml 250 ML IVPB SCH (07:45)
--- NOTE | 2018-12-18 08:10 | RAD ---
SINGLE VIEW OF THE CHEST: COMPARISON: 12/17/2018. HISTORY: Status post open heart surgery. FINDINGS: A single view of the chest shows a normal-size cardiomediastinal silhouette. The patient is status p ost CABG. The mediastinal drain, chest tube, and central venous catheter are unchanged in position. There are small bilateral pleural effusions. No pneumothorax is seen. IMPRESSION: Small bilateral pleural effusions. POS: [facility]
[2018-12-18] MEDS: Famotidine 20 MG TAB PO SCH ×2 (08:23→20:15)
[2018-12-18] MEDS: Potassium Chloride 20 MEQ TAB PO SCH (08:23)
[2018-12-18] MEDS: Aspirin 325 mg Enteric Coated Tablet PO SCH (08:23)
[2018-12-18] MEDS: Polyethylene Glycol 3350 17 GM Packet PO SCH (08:23)
[2018-12-18] MEDS: Carvedilol 3.125 MG TAB PO SCH ×2 (08:23→20:15)
[2018-12-18] MEDS: Furosemide 40 MG TAB PO SCH ×2 (08:24→20:16)
[2018-12-18] MEDS: tiZANidine HCl 4 MG TAB PO SCH ×2 (08:24→20:15)
[2018-12-18] MEDS: Alogliptin 6.25 MG TAB PO SCH (08:24)
--- NOTE | 2018-12-18 18:36 | PDOC.PN ---
- Subjective Encounter Start Date: 12/18/18 Encounter Start Time: 16:05 Subjective: f/u s/p CABG x 4v POD #2. Still sore on chest but moving better -: and ambulated with PT in halls. No fever or chills. Back pain and -: spasms resolved. - Objective Resuscitation Status - Order Detail: 12/12/18 23:40 Resuscitation Status Routine Resuscitation Status: FULL: Full Resuscitation MAR Reviewed: Yes Vital Signs & Weight: Vital Signs (12 hours) Temp Pulse Pulse BP BP Pulse Ox Pulse Ox 12/18/18 16:00 98.7 F 12/18/18 13:28 96 96 119/53 L 115/69 95 12/18/18 12:00 99.0 F 12/18/18 09:45 98 96 124/78 137/84 95 12/18/18 08:00 98.4 F 92 L 12/18/18 07:28 93 L Pulse Ox 12/18/18 16:00 12/18/18 13:28 91 L 12/18/18 12:00 12/18/18 09:45 93 L 12/18/18 08:00 12/18/18 07:28 Weight Weight 174 lb 2.643 oz Most Recent Monitor Data Heart Rate from ECG 94 NIBP 153/65 NIBP BP-Mean 94 Respiration from ECG 32 SpO2 92 I&O: 12/17/18 12/18/18 12/19/18 06:59 06:59 06:59 Intake Total 1397 1326 780 Output Total 2215 1248 767 Balance -818 78 13 Result Diagrams: 12/18/18 04:33 12/18/18 04:33 Additional Labs: Accuchecks 12/18/18 12/18/18 12/18/18 15:58 10:37 04:19 POC Glucose 216 H 155 H 123 H 12/17/18 21:05 POC Glucose 112 H Laboratory Tests 12/12/18 12/13/18 12/14/18 20:45 05:29 06:14 WBC 8.6 5.7 Hgb 10.2 L 9.8 L Creatinine 0.94 Hemoglobin A1c 12/15/18 12/15/18 12/16/18 04:29 04:30 05:29 WBC Hgb Creatinine 1.34 H 1.36 H Hemoglobin A1c 6.9 H 12/16/18 12:05 WBC 17.4 H Hgb 10.4 L Creatinine Hemoglobin A1c Radiology Reviewed by me: Yes (PCXR - small bilat pleural effusions, lines/ catheters/tubes in place) EKG Reviewed by me: Yes (Tele - SR) Phys Exam - Physical Examination Constitutional: NAD HEENT: PERRLA, sclera anicteric, oral pharynx no lesions Neck: no nodes, no JVD, supple, full ROM sternal incision CDI Respiratory: no wheezing, no rales, no rhonchi, clear to auscultation bilateral S1, S2 Cardiovascular: RRR, no significant murmur, no rub, gallop Gastrointestinal: soft, non-tender, no distention, positive bowel sounds mild LE edema Musculoskeletal: pulses present Neurological: normal sensation, moves all 4 limbs Psychiatric: A&O x 3 Skin: normal turgor, cap refill <2 seconds Dx/Plan (1) Acute systolic CHF (congestive heart failure), NYHA class 2 Code(s): I50.21 - ACUTE SYSTOLIC (CONGESTIVE) HEART FAILURE Status: Acute Comment: EF 45-50%, s/p 4v CABG, monitor fluid status, I/O's, daily weight, wean Dobutamine gtt as clinically indicated (2) Coronary artery disease Code(s): I25.10 - ATHSCL HEART DISEASE OF [place] CORONARY ARTERY W/O ANG PCTRS Status: Acute Comment: s/p 4v CABG POD #2, continue ASA, Lipitor (3) Diabetes mellitus Code(s): E11.9 - TYPE 2 DIABETES MELLITUS WITHOUT COMPLICATIONS Status: Chronic Comment: ISS, serial accuchecks (4) Hyperlipidemia Code(s): E78.5 - HYPERLIPIDEMIA, UNSPECIFIED Status: Chronic Comment: Continue Lipitor (5) Ischemic cardiomyopathy Code(s): I25.5 - ISCHEMIC CARDIOMYOPATHY Status: Chronic Comment: EF 45-50% , wean Dobutamine (6) Tobacco abuse Code(s): Z72.0 - TOBACCO USE Status: Chronic Comment: Tobacco cessation resources - Plan plan discussed w/ family, PT/OT, social staff worker, respiratory therapy, out of bed/ambulate, DVT proph w/SCDs Stable currently -: Wean Dobutamine -: Continue ASA/Lipitor -: Continue Coreg -: OOB/ambulate with PT * AM lab: BMP
[2018-12-18] MEDS: Atorvastatin Calcium 40 MG TAB PO SCH (20:15)
[2018-12-18] MEDS: Insulin Regular 300 UNITS/3 ML VIAL SC PRN (20:27)
[2018-12-19 05:35] LABS: Anion Gap 13 mmol/L (10-20); BUN (Urea Nitrogen) 30 mg/dL (9.8-20.1); Calc. Creatinine Clearance 83 mL/min (70-130); Calcium 8.5 mg/dL (7.8-10.44); Carbon Dioxide 23 mmol/L (23-31); Chloride 107 mmol/L (98-107); Estimated GFR-MDRD 70; Glucose 132 mg/dL (80-115); Potassium 4.4 mmol/L (3.5-5.1); Sodium 139 mmol/L (136-145)
[2018-12-19] MEDS ORDERED: Furosemide 40 MG/4 ML VIAL SLOW IVP SCH (06:15)
[2018-12-19] MEDS: Potassium Chloride 20 MEQ TAB PO SCH (09:31)
[2018-12-19] MEDS: Polyethylene Glycol 3350 17 GM Packet PO SCH (09:31)
[2018-12-19] MEDS: Carvedilol 3.125 MG TAB PO SCH ×2 (09:31→21:52)
[2018-12-19] MEDS: Alogliptin 25 MG TAB PO SCH (09:31)
[2018-12-19] MEDS: Aspirin 325 mg Enteric Coated Tablet PO SCH (09:31)
[2018-12-19] MEDS: Famotidine 20 MG TAB PO SCH ×2 (09:31→21:53)
[2018-12-19] MEDS: tiZANidine HCl 4 MG TAB PO SCH ×2 (09:39→21:52)
[2018-12-19] MEDS: Furosemide 40 MG/4 ML VIAL SLOW IVP SCH (13:30)
[2018-12-19] MEDS: Insulin Regular 300 UNITS/3 ML VIAL SC PRN ×2 (13:32→21:56)
[2018-12-19] MEDS: Atorvastatin Calcium 40 MG TAB PO SCH (21:52)
--- NOTE | 2018-12-19 22:21 | PDOC.PN ---
- Subjective Encounter Start Date: 12/19/18 Encounter Start Time: 17:00 Subjective: f/u s/p CABG POD #3. Ambulating in halls, some chest soreness. -: Mild cough. Appetite improved. - Objective Resuscitation Status - Order Detail: 12/12/18 23:40 Resuscitation Status Routine Resuscitation Status: FULL: Full Resuscitation MAR Reviewed: Yes Vital Signs & Weight: Vital Signs (12 hours) Temp Pulse Pulse Pulse Resp BP BP 12/19/18 16:00 98.1 F 91 18 12/19/18 14:15 93 93 108/55 L 107/51 L 12/19/18 11:25 98.5 F 94 16 BP Pulse Ox Pulse Ox Pulse Ox 12/19/18 16:00 134/62 95 12/19/18 14:15 96 93 L 12/19/18 11:25 141/63 H 95 Weight Weight 167 lb 6.4 oz Most Recent Monitor Data Heart Rate from ECG 93 NIBP 118/60 NIBP BP-Mean 79 Respiration from ECG 10 SpO2 93 I&O: 12/18/18 12/19/18 12/20/18 06:59 06:59 06:59 Intake Total 1326 1110 1000 Output Total 1248 1877 900 Balance 78 -767 100 Result Diagrams: 12/18/18 04:33 12/19/18 04:38 Additional Labs: Accuchecks 12/19/18 12/19/18 12/19/18 20:34 17:07 10:41 POC Glucose 179 H 181 H 222 H 12/19/18 05:37 POC Glucose 144 H Laboratory Tests 12/12/18 12/13/18 12/14/18 20:45 05:29 06:14 WBC 8.6 5.7 Hgb 10.2 L 9.8 L Creatinine 0.94 Hemoglobin A1c 12/15/18 12/15/18 12/16/18 04:29 04:30 05:29 WBC Hgb Creatinine 1.34 H 1.36 H Hemoglobin A1c 6.9 H 12/16/18 12:05 WBC 17.4 H Hgb 10.4 L Creatinine Hemoglobin A1c EKG Reviewed by me: Yes (Tele - SR) Phys Exam - Physical Examination Constitutional: NAD HEENT: PERRLA, sclera anicteric, oral pharynx no lesions Neck: no nodes, no JVD, supple, full ROM Respiratory: no wheezing, no rales, no rhonchi, clear to auscultation bilateral S1, S2 Cardiovascular: RRR, no significant murmur, no rub, gallop Gastrointestinal: soft, non-tender, no distention, positive bowel sounds mild LE edema Musculoskeletal: pulses present Neurological: normal sensation, moves all 4 limbs Psychiatric: A&O x 3 Skin: normal turgor, cap refill <2 seconds Dx/Plan (1) Acute systolic CHF (congestive heart failure), NYHA class 2 Code(s): I50.21 - ACUTE SYSTOLIC (CONGESTIVE) HEART FAILURE Status: Acute Comment: EF 45-50%, s/p 4v CABG, monitor fluid status, I/O's, daily weight (2) Coronary artery disease Code(s): I25.10 - ATHSCL HEART DISEASE OF [place] CORONARY ARTERY W/O ANG PCTRS Status: Chronic Comment: s/p 4v CABG POD #3, continue ASA, Lipitor (3) Diabetes mellitus Code(s): E11.9 - TYPE 2 DIABETES MELLITUS WITHOUT COMPLICATIONS Status: Chronic Comment: ISS, serial accuchecks (4) Hyperlipidemia Code(s): E78.5 - HYPERLIPIDEMIA, UNSPECIFIED Status: Chronic Comment: Continue Lipitor (5) Ischemic cardiomyopathy Code(s): I25.5 - ISCHEMIC CARDIOMYOPATHY Status: Chronic Comment: EF 45-50% , weaned off Dobutamine (6) Tobacco abuse Code(s): Z72.0 - TOBACCO USE Status: Chronic Comment: Tobacco cessation resources - Plan PT/OT, social and political studies professor, incentive spirometry, out of bed/ambulate, DVT proph w/ SCDs Stable currently -: Continue ASA/Lipitor/Coreg -: Pain control as clinically indicated -: OOB with PT -: AM lab: BMP, CBC * .
[2018-12-20] MEDS: Furosemide 40 MG/4 ML VIAL SLOW IVP SCH ×2 (05:51→14:54)
[2018-12-20 06:39] LABS: #Eosinphils 0.9 thou/uL (0.0-0.7); #Lymphocytes 1.4 thou/uL (1.20-3.40); #Monocytes 1.1 thou/uL (0.11-0.59); #Neutrophils 9.4 thou/uL (1.40-6.50); %Basophils 0.2 % (0.0-1.0); %Eosinophils 6.9 % (0.0-10.0); %Lymphocytes 10.9 % (21.0-51.0); %Monocytes 8.8 % (0.0-10.0); %Neutrophils 73.2 % (42.0-75.0); Hemoglobin 10.3 g/dL (12.0-16.0); Mean Corpuscular HGB CONC 31.4 g/dL (32.0-36.0); Mean Corpuscular Hemoglobin 28.5 pg (27.0-31.0); Mean Corpuscular Volume 90.5 fL (78.0-98.0); Mean Platelet Volume 6.8 fL (7.4-10.4); Platelet Count 408 thou/uL (130-400); RBC Distribution Width 13.3 % (11.5-14.5); Red Blood Cell (RBC) Count 3.61 mill/uL (4.20-5.40); White Blood Cell (WBC) Count 12.8 thou/uL (4.8-10.8)
[2018-12-20 06:57] LABS: Anion Gap 11 mmol/L (10-20); BUN (Urea Nitrogen) 27 mg/dL (9.8-20.1); Calc. Creatinine Clearance 77 mL/min (70-130); Calcium 8.6 mg/dL (7.8-10.44); Carbon Dioxide 28 mmol/L (23-31); Chloride 107 mmol/L (98-107); Estimated GFR-MDRD 67; Glucose 119 mg/dL (80-115); Potassium 4.5 mmol/L (3.5-5.1); Sodium 141 mmol/L (136-145)
[2018-12-20] MEDS ORDERED: Metolazone 5 MG TAB PO SCH (07:00)
[2018-12-20] MEDS: metFORMIN 500 MG TAB PO SCH ×2 (09:30→17:42)
[2018-12-20] MEDS: Potassium Chloride 20 MEQ TAB PO SCH (09:30)
[2018-12-20] MEDS: Alogliptin 25 MG TAB PO SCH (09:31)
[2018-12-20] MEDS: Famotidine 20 MG TAB PO SCH ×2 (09:32→20:50)
[2018-12-20] MEDS: tiZANidine HCl 4 MG TAB PO SCH ×2 (09:32→20:50)
[2018-12-20] MEDS: Carvedilol 3.125 MG TAB PO SCH ×2 (09:32→20:50)
[2018-12-20] MEDS: Aspirin 325 mg Enteric Coated Tablet PO SCH (09:32)
[2018-12-20] MEDS: Polyethylene Glycol 3350 17 GM Packet PO SCH (09:33)
[2018-12-20] MEDS: Insulin Regular 300 UNITS/3 ML VIAL SC PRN ×2 (12:00→20:53)
--- NOTE | 2018-12-20 13:44 | PDOC.PN ---
- Subjective Encounter Start Date: 12/20/18 Encounter Start Time: 13:40 Subjective: f/u s/p CABG x 4v POD #4. Feels ok overall and ambulating in halls. -: Some coughing, but CT remains in place. - Objective Resuscitation Status - Order Detail: 12/12/18 23:40 Resuscitation Status Routine Resuscitation Status: FULL: Full Resuscitation MAR Reviewed: Yes Vital Signs & Weight: Vital Signs (12 hours) Temp Pulse Pulse Pulse Resp BP BP 12/20/18 11:55 98.5 F 83 23 H 12/20/18 09:35 86 12/20/18 08:45 88 86 118/50 L 99/50 L 12/20/18 07:37 98 F 80 23 H 12/20/18 03:34 98.2 F 85 16 BP BP Pulse Ox Pulse Ox Pulse Ox 12/20/18 11:55 165/74 H 97 12/20/18 09:35 123/57 L 12/20/18 08:45 97 95 12/20/18 07:37 91/51 L 93 L 12/20/18 03:34 124/60 94 L Weight Weight 167 lb 6.4 oz Most Recent Monitor Data Heart Rate from ECG 93 NIBP 118/60 NIBP BP-Mean 79 Respiration from ECG 10 SpO2 93 I&O: 12/19/18 12/20/18 12/21/18 06:59 06:59 06:59 Intake Total 1110 1000 Output Total 1877 1090 Balance -767 -90 Result Diagrams: 12/20/18 05:58 12/20/18 05:58 Additional Labs: Accuchecks 12/20/18 12/20/18 12/19/18 11:26 05:26 20:34 POC Glucose 177 H 136 H 179 H 12/19/18 17:07 POC Glucose 181 H Laboratory Tests 12/12/18 12/13/18 12/14/18 20:45 05:29 06:14 WBC 8.6 5.7 Hgb 10.2 L 9.8 L Creatinine 0.94 Hemoglobin A1c 12/15/18 12/15/18 12/16/18 04:29 04:30 05:29 WBC Hgb Creatinine 1.34 H 1.36 H Hemoglobin A1c 6.9 H 12/16/18 12:05 WBC 17.4 H Hgb 10.4 L Creatinine Hemoglobin A1c EKG Reviewed by me: Yes (Tele - SR) Phys Exam - Physical Examination Constitutional: NAD HEENT: PERRLA, sclera anicteric, oral pharynx no lesions Neck: no nodes, no JVD, supple, full ROM diminished in bases Respiratory: no wheezing S1, S2 Cardiovascular: RRR, no significant murmur, no rub, gallop Gastrointestinal: soft, non-tender, no distention, positive bowel sounds peripheral edema BLE's Musculoskeletal: pulses present Neurological: normal sensation, moves all 4 limbs Psychiatric: A&O x 3 Skin: normal turgor, cap refill <2 seconds Dx/Plan (1) Acute systolic CHF (congestive heart failure), NYHA class 2 Code(s): I50.21 - ACUTE SYSTOLIC (CONGESTIVE) HEART FAILURE Status: Acute Comment: EF 45-50%, s/p 4v CABG, monitor fluid status, I/O's, daily weight (2) Coronary artery disease Code(s): I25.10 - ATHSCL HEART DISEASE OF [place] CORONARY ARTERY W/O ANG PCTRS Status: Chronic Comment: s/p 4v CABG POD #4, continue ASA, Lipitor (3) Diabetes mellitus Code(s): E11.9 - TYPE 2 DIABETES MELLITUS WITHOUT COMPLICATIONS Status: Chronic Comment: ISS, serial accuchecks, Metformin (4) Hyperlipidemia Code(s): E78.5 - HYPERLIPIDEMIA, UNSPECIFIED Status: Chronic Comment: Continue Lipitor (5) Ischemic cardiomyopathy Code(s): I25.5 - ISCHEMIC CARDIOMYOPATHY Status: Chronic Comment: EF 45-50% , weaned off Dobutamine, Lasix (6) Tobacco abuse Code(s): Z72.0 - TOBACCO USE Status: Chronic Comment: Tobacco cessation resources - Plan plan discussed w/ family, PT/OT, social worker health services, out of bed/ambulate Stable currently -: Continue Lasix IV -: Likely CT removal in next 24-48h -: OOB with PT -: AM lab: BMP * .
[2018-12-20] MEDS: Atorvastatin Calcium 40 MG TAB PO SCH (20:50)
[2018-12-21] MEDS: Furosemide 40 MG/4 ML VIAL SLOW IVP SCH ×2 (05:40→14:29)
[2018-12-21 06:36] LABS: Anion Gap 14 mmol/L (10-20); BUN (Urea Nitrogen) 30 mg/dL (9.8-20.1); Calc. Creatinine Clearance 57 mL/min (70-130); Calcium 8.3 mg/dL (7.8-10.44); Carbon Dioxide 24 mmol/L (23-31); Chloride 104 mmol/L (98-107); Estimated GFR-MDRD 51; Glucose 108 mg/dL (80-115); Sodium 137 mmol/L (136-145)
[2018-12-21] MEDS: Alogliptin 25 MG TAB PO SCH (08:55)
[2018-12-21] MEDS: metFORMIN 500 MG TAB PO SCH ×2 (08:55→17:51)
[2018-12-21] MEDS: tiZANidine HCl 4 MG TAB PO SCH ×2 (08:55→20:54)
[2018-12-21] MEDS: Potassium Chloride 20 MEQ TAB PO SCH (08:56)
[2018-12-21] MEDS: Carvedilol 3.125 MG TAB PO SCH ×2 (08:56→20:54)
[2018-12-21] MEDS: Aspirin 325 mg Enteric Coated Tablet PO SCH (08:56)
[2018-12-21] MEDS: Famotidine 20 MG TAB PO SCH ×2 (08:57→20:54)
[2018-12-21] MEDS: Polyethylene Glycol 3350 17 GM Packet PO SCH (08:58)
[2018-12-21] MEDS: Insulin Regular 300 UNITS/3 ML VIAL SC PRN (11:58)
--- NOTE | 2018-12-21 15:35 | PDOC.CTH ---
Cardiology Progress Note - Subjective The pt seen and examined. No cardiac complaints. No overnight events. She stated she walked with PT today without any cardiac complaints. - Objective Vital Signs Temp Pulse Pulse Pulse Resp BP BP 12/21/18 12:58 79 76 107/56 L 133/61 12/21/18 08:44 98.0 F 76 16 12/21/18 05:51 73 12/21/18 04:00 97.9 F 72 16 BP Pulse Ox Pulse Ox Pulse Ox 12/21/18 12:58 96 94 L 12/21/18 08:44 136/61 97 12/21/18 05:51 115/57 L 12/21/18 04:00 97/51 L 93 L Weight 155 lb 12.8 oz 12/20/18 12/21/18 12/22/18 06:59 06:59 06:59 Intake Total 1000 1130 Output Total 1090 970 Balance -90 160 - Physical Examination General/Neuro: alert & oriented x3 Neck: no JVD present Lungs: other: (diminihsed at bases) Heart: RRR Abdomen: soft Extremities: other: (1-2+pitting BLE edema) - Telemetry Telemetry Rhythm: SR - Labs Result Diagrams: 12/20/18 05:58 12/21/18 05:51 Troponin/CKMB CK-MB (CK-2) 6.6 ng/mL (0-6.6) 12/12/18 19:53 Troponin I 0.771 ng/mL (< 0.028) H* 12/14/18 06:14 - Assessment/Plan 1. S/p CABG x4 - stable with ASA, Lipitor, and Coreg 2. Acute on Chronic systolic HF - stable; on Lasix 40mg IV BID and Coreg; not on KALPESH/ARB due to hypotensive. 3. HTN - hypotensive 4. Hyperlipidemia - on statin 5. DM type 2 - managed by PCP 6. Tobacco abuse - smoking cessation education given MAR reviewed pt.seen and eval.[email or web address].I agreewith the a/Pby the APPLIANCE SERVICE TECHNICIAN. RRR,chestclear. Review of Systems - Review of Systems Constitutional: reports: weakness EENTM: reports: no symptoms reported Respiratory: reports: no symptoms reported Cardiac (ROS): reports: no symptoms reported ABD/GI: reports: no symptoms reported : reports: no symptoms reported Musculoskeletal: reports: no symptoms reported Skin: reports: no symptoms reported
--- NOTE | 2018-12-21 16:45 | PDOC.PN ---
- Subjective Encounter Start Date: 12/21/18 Encounter Start Time: 15:10 Subjective: f/u for CAD and s/p CABG POD #5. Feels tired but ambulating in halls. -: No fever or chills. Chest tubes remain in place. - Objective Resuscitation Status - Order Detail: 12/12/18 23:40 Resuscitation Status Routine Resuscitation Status: FULL: Full Resuscitation MAR Reviewed: Yes Vital Signs & Weight: Vital Signs (12 hours) Temp Pulse Pulse Pulse Resp BP BP 12/21/18 15:35 76 77 120/56 L 105/51 L 12/21/18 12:58 79 76 107/56 L 133/61 12/21/18 08:44 98.0 F 76 16 12/21/18 05:51 73 BP Pulse Ox Pulse Ox Pulse Ox 12/21/18 15:35 96 12/21/18 12:58 96 94 L 12/21/18 08:44 136/61 97 12/21/18 05:51 115/57 L Weight Weight 155 lb 12.8 oz Most Recent Monitor Data Heart Rate from ECG 93 NIBP 118/60 NIBP BP-Mean 79 Respiration from ECG 10 SpO2 93 I&O: 12/20/18 12/21/18 12/22/18 06:59 06:59 06:59 Intake Total 1000 1130 Output Total 1090 970 Balance -90 160 Result Diagrams: 12/20/18 05:58 12/21/18 05:51 Additional Labs: Accuchecks 12/21/18 12/21/18 12/21/18 16:20 10:56 05:29 POC Glucose 106 165 H 121 H 12/20/18 12/20/18 20:19 16:30 POC Glucose 147 H 126 H Laboratory Tests 12/12/18 12/13/18 12/14/18 20:45 05:29 06:14 WBC 8.6 5.7 Hgb 10.2 L 9.8 L Creatinine 0.94 Hemoglobin A1c 12/15/18 12/15/18 12/16/18 04:29 04:30 05:29 WBC Hgb Creatinine 1.34 H 1.36 H Hemoglobin A1c 6.9 H 12/16/18 12:05 WBC 17.4 H Hgb 10.4 L Creatinine Hemoglobin A1c EKG Reviewed by me: Yes (Tele - SR) Phys Exam - Physical Examination Constitutional: NAD HEENT: PERRLA, sclera anicteric, oral pharynx no lesions Neck: no nodes, no JVD, supple, full ROM diminished in bases CT's in place, midline sternal incision CDI Respiratory: no wheezing S1, S2 Cardiovascular: RRR, no significant murmur, no rub, gallop Gastrointestinal: soft, non-tender, no distention, positive bowel sounds Musculoskeletal: pulses present, edema present Neurological: normal sensation, moves all 4 limbs Psychiatric: A&O x 3 Skin: normal turgor, cap refill <2 seconds Dx/Plan (1) Acute systolic CHF (congestive heart failure), NYHA class 2 Code(s): I50.21 - ACUTE SYSTOLIC (CONGESTIVE) HEART FAILURE Status: Acute Comment: EF 45-50%, s/p 4v CABG, monitor fluid status, I/O's, daily weight (2) Coronary artery disease Code(s): I25.10 - ATHSCL HEART DISEASE OF [place] CORONARY ARTERY W/O ANG PCTRS Status: Chronic Comment: s/p 4v CABG POD #5, continue ASA, Lipitor (3) Diabetes mellitus Code(s): E11.9 - TYPE 2 DIABETES MELLITUS WITHOUT COMPLICATIONS Status: Chronic Comment: ISS, serial accuchecks, Metformin (4) Hyperlipidemia Code(s): E78.5 - HYPERLIPIDEMIA, UNSPECIFIED Status: Chronic Comment: Continue Lipitor (5) Ischemic cardiomyopathy Code(s): I25.5 - ISCHEMIC CARDIOMYOPATHY Status: Chronic Comment: EF 45-50% , weaned off Dobutamine, Lasix (6) Tobacco abuse Code(s): Z72.0 - TOBACCO USE Status: Chronic Comment: Tobacco cessation resources - Plan PT/OT, aids social worker, respiratory therapy, out of bed/ambulate, DVT proph w/ SCDs Stable currently -: Continue ASA/Lipitor -: OOB/PT -: Continue Lasix 40mg IV BID -: Likely home in 48h * .
[2018-12-21] MEDS: Atorvastatin Calcium 40 MG TAB PO SCH (20:54)
[2018-12-22] MEDS: Furosemide 40 MG/4 ML VIAL SLOW IVP SCH (06:28)
[2018-12-22] MEDS: tiZANidine HCl 4 MG TAB PO SCH ×2 (09:33→21:13)
[2018-12-22] MEDS: Carvedilol 3.125 MG TAB PO SCH ×2 (09:33→21:12)
[2018-12-22] MEDS: Famotidine 20 MG TAB PO SCH ×2 (09:33→21:13)
[2018-12-22] MEDS: Aspirin 325 mg Enteric Coated Tablet PO SCH (09:33)
[2018-12-22] MEDS: Potassium Chloride 20 MEQ TAB PO SCH (09:33)
[2018-12-22] MEDS: Alogliptin 25 MG TAB PO SCH (09:33)
[2018-12-22] MEDS: Polyethylene Glycol 3350 17 GM Packet PO SCH (09:35)
[2018-12-22] MEDS: metFORMIN 500 MG TAB PO SCH ×2 (09:35→17:59)
[2018-12-22] MEDS: Insulin Regular 300 UNITS/3 ML VIAL SC PRN ×2 (12:21→17:59)
--- NOTE | 2018-12-22 16:03 | PDOC.PN ---
- Subjective Encounter Start Date: 12/22/18 Encounter Start Time: 16:00 Subjective: f/u s/p CABG POD #6. Nsg reports pt weaker, less mobile today. -: No CP other than around the incision and CT site. - Objective Resuscitation Status - Order Detail: 12/12/18 23:40 Resuscitation Status Routine Resuscitation Status: FULL: Full Resuscitation MAR Reviewed: Yes Vital Signs & Weight: Vital Signs (12 hours) Temp Pulse Pulse Pulse Pulse Resp BP 12/22/18 14:50 74 76 105/55 L 12/22/18 12:25 73 77 104/53 L 12/22/18 12:00 97.4 F L 73 22 H 12/22/18 08:25 12/22/18 08:00 97.1 F L 75 26 H BP BP BP Pulse Ox Pulse Ox Pulse Ox Pulse Ox 12/22/18 14:50 120/57 L 126/64 96 97 12/22/18 12:25 126/64 97 96 12/22/18 12:00 107/53 L 96 12/22/18 08:25 95 12/22/18 08:00 123/60 95 Weight Weight 155 lb 3.2 oz Most Recent Monitor Data Heart Rate from ECG 93 NIBP 118/60 NIBP BP-Mean 79 Respiration from ECG 10 SpO2 93 I&O: 12/21/18 12/22/18 12/23/18 06:59 06:59 06:59 Intake Total 1130 1400 350 Output Total 010 448 0088 Balance 160 580 -875 Result Diagrams: 12/20/18 05:58 12/21/18 05:51 Additional Labs: Accuchecks 12/22/18 12/22/18 12/21/18 10:43 05:37 20:38 POC Glucose 186 H 116 H 103 12/21/18 16:20 POC Glucose 106 Laboratory Tests 12/12/18 12/13/18 12/14/18 20:45 05:29 06:14 WBC 8.6 5.7 Hgb 10.2 L 9.8 L Creatinine 0.94 Hemoglobin A1c 12/15/18 12/15/18 12/16/18 04:29 04:30 05:29 WBC Hgb Creatinine 1.34 H 1.36 H Hemoglobin A1c 6.9 H 12/16/18 12:05 WBC 17.4 H Hgb 10.4 L Creatinine Hemoglobin A1c EKG Reviewed by me: Yes (Tele - SR ) Phys Exam - Physical Examination Constitutional: NAD HEENT: PERRLA, sclera anicteric, oral pharynx no lesions Neck: no nodes, no JVD, supple, full ROM diminished in bases Respiratory: no wheezing, no rhonchi S1, S2 Cardiovascular: RRR, no significant murmur, no rub, gallop Gastrointestinal: soft, non-tender, no distention, positive bowel sounds Musculoskeletal: pulses present, edema present Neurological: normal sensation, moves all 4 limbs Psychiatric: A&O x 3 Skin: normal turgor, cap refill <2 seconds Dx/Plan (1) Acute systolic CHF (congestive heart failure), NYHA class 2 Code(s): I50.21 - ACUTE SYSTOLIC (CONGESTIVE) HEART FAILURE Status: Acute Comment: EF 45-50%, s/p 4v CABG, monitor fluid status, I/O's, daily weight (2) Coronary artery disease Code(s): I25.10 - ATHSCL HEART DISEASE OF [place] CORONARY ARTERY W/O ANG PCTRS Status: Chronic Comment: s/p 4v CABG POD #6, continue ASA, Lipitor (3) Diabetes mellitus Code(s): E11.9 - TYPE 2 DIABETES MELLITUS WITHOUT COMPLICATIONS Status: Chronic Comment: ISS, serial accuchecks, Metformin (4) Hyperlipidemia Code(s): E78.5 - HYPERLIPIDEMIA, UNSPECIFIED Status: Chronic Comment: Continue Lipitor (5) Ischemic cardiomyopathy Code(s): I25.5 - ISCHEMIC CARDIOMYOPATHY Status: Chronic Comment: EF 45-50% , weaned off Dobutamine, Lasix (6) Tobacco abuse Code(s): Z72.0 - TOBACCO USE Status: Chronic Comment: Tobacco cessation resources - Plan plan discussed w/ family, PT/OT, social secretary, out of bed/ambulate, DVT proph w/SCDs Stable currently -: Continue ASA, Lipitor -: Continue Coreg -: OOB with PT -: AM lab: CBC * PCXR in am
[2018-12-22] MEDS: Atorvastatin Calcium 40 MG TAB PO SCH (21:12)
[2018-12-23] MEDS ORDERED: Furosemide 40 MG TAB PO SCH (07:30)
[2018-12-23] MEDS: Alogliptin 25 MG TAB PO SCH (08:38)
[2018-12-23] MEDS: Famotidine 20 MG TAB PO SCH ×2 (08:38→20:30)
[2018-12-23] MEDS: Aspirin 325 mg Enteric Coated Tablet PO SCH (08:38)
[2018-12-23] MEDS: metFORMIN 500 MG TAB PO SCH ×2 (08:38→16:56)
[2018-12-23] MEDS: Polyethylene Glycol 3350 17 GM Packet PO SCH (08:39)
[2018-12-23] MEDS: tiZANidine HCl 4 MG TAB PO SCH ×2 (08:39→20:30)
[2018-12-23] MEDS: Carvedilol 3.125 MG TAB PO SCH ×2 (08:39→20:30)
--- NOTE | 2018-12-23 08:51 | RAD ---
SINGLE VIEW CHEST: Date: 12/23/18 COMPARISON: 12/18/18. HISTORY: Edema. FINDINGS: Single view of the chest shows an enlarged but stable cardiomediastinal silhouette. The patient is st atus post CABG. The central venous catheter and chest tubes are unchanged in position. There is no ev idence of consolidation, mass, pneumothorax, or pleural effusion. IMPRESSION: Stable exam. POS: [facility]
--- NOTE | 2018-12-23 10:52 | PDOC.PN ---
- Subjective Encounter Start Date: 12/23/18 Encounter Start Time: 10:20 Subjective: f/u s/p CABG POD #7. States feeling ok but weak. Still with mild -: cough, no fever. Chest tubes removed today. - Objective Resuscitation Status - Order Detail: 12/12/18 23:40 Resuscitation Status Routine Resuscitation Status: FULL: Full Resuscitation MAR Reviewed: Yes Vital Signs & Weight: Vital Signs (12 hours) Temp Pulse Resp BP Pulse Ox 12/23/18 07:45 97 12/23/18 07:35 98.1 F 76 18 116/57 L 96 12/23/18 03:47 98.3 F 76 16 127/59 L 96 Weight Weight 152 lb Most Recent Monitor Data Heart Rate from ECG 93 NIBP 118/60 NIBP BP-Mean 79 Respiration from ECG 10 SpO2 93 I&O: 12/22/18 12/23/18 12/24/18 06:59 06:59 06:59 Intake Total 1400 800 Output Total 820 1680 Balance 580 -880 Result Diagrams: 12/20/18 05:58 12/21/18 05:51 Additional Labs: Accuchecks 12/22/18 12/22/18 12/22/18 20:31 17:00 10:43 POC Glucose 94 132 H 186 H Laboratory Tests 12/12/18 12/13/18 12/14/18 20:45 05:29 06:14 WBC 8.6 5.7 Hgb 10.2 L 9.8 L Creatinine 0.94 Hemoglobin A1c 12/15/18 12/15/18 12/16/18 04:29 04:30 05:29 WBC Hgb Creatinine 1.34 H 1.36 H Hemoglobin A1c 6.9 H 12/16/18 12:05 WBC 17.4 H Hgb 10.4 L Creatinine Hemoglobin A1c Radiology Reviewed by me: Yes (PCXR - no acute changes) EKG Reviewed by me: Yes (Tele - SR) Phys Exam - Physical Examination Constitutional: NAD HEENT: PERRLA, sclera anicteric, oral pharynx no lesions Neck: no nodes, no JVD, supple, full ROM Respiratory: no wheezing, no rales, no rhonchi, clear to auscultation bilateral S1, S2 Cardiovascular: RRR, no significant murmur, no rub, gallop Gastrointestinal: soft, non-tender, no distention, positive bowel sounds Musculoskeletal: no edema, pulses present Neurological: normal sensation, moves all 4 limbs Psychiatric: A&O x 3 Skin: normal turgor, cap refill <2 seconds Dx/Plan (1) Acute systolic CHF (congestive heart failure), NYHA class 2 Code(s): I50.21 - ACUTE SYSTOLIC (CONGESTIVE) HEART FAILURE Status: Acute Comment: EF 45-50%, s/p 4v CABG POD #7, monitor fluid status, I/O's, daily weight (2) Coronary artery disease Code(s): I25.10 - ATHSCL HEART DISEASE OF [place] CORONARY ARTERY W/O ANG PCTRS Status: Chronic Comment: s/p 4v CABG POD #7, continue ASA, Lipitor (3) Diabetes mellitus Code(s): E11.9 - TYPE 2 DIABETES MELLITUS WITHOUT COMPLICATIONS Status: Chronic Comment: ISS, serial accuchecks, Metformin (4) Hyperlipidemia Code(s): E78.5 - HYPERLIPIDEMIA, UNSPECIFIED Status: Chronic Comment: Continue Lipitor (5) Ischemic cardiomyopathy Code(s): I25.5 - ISCHEMIC CARDIOMYOPATHY Status: Chronic Comment: EF 45-50% , weaned off Dobutamine, Lasix (6) Tobacco abuse Code(s): Z72.0 - TOBACCO USE Status: Chronic Comment: Tobacco cessation resources - Plan plan discussed w/ family, PT/OT, social secretary, out of bed/ambulate, DVT proph w/SCDs Stable currently -: Continue ASA, Lipitor -: OOB with PT -: Continue Lasix 40mg po daily -: Rehab evaluation pending * .
[2018-12-23 13:28] VITALS: BMI 26.1
[2018-12-23] MEDS: Atorvastatin Calcium 40 MG TAB PO SCH (20:30)
[2018-12-24 07:25] LABS: Anion Gap 15 mmol/L (10-20); BUN (Urea Nitrogen) 25 mg/dL (9.8-20.1); Calc. Creatinine Clearance 64 mL/min (70-130); Calcium 8.7 mg/dL (7.8-10.44); Carbon Dioxide 27 mmol/L (23-31); Chloride 103 mmol/L (98-107); Estimated GFR-MDRD 61; Glucose 110 mg/dL (80-115); Potassium 4.7 mmol/L (3.5-5.1); Sodium 140 mmol/L (136-145)
[2018-12-24] MEDS ORDERED: Furosemide 40 MG TAB PO SCH ×2 (07:30→09:00)
[2018-12-24] MEDS: tiZANidine HCl 4 MG TAB PO SCH (09:35)
[2018-12-24] MEDS: Aspirin 325 mg Enteric Coated Tablet PO SCH (09:35)
[2018-12-24] MEDS: metFORMIN 850 MG TAB PO SCH ×2 (09:35→17:01)
[2018-12-24] MEDS: Carvedilol 3.125 MG TAB PO SCH (09:35)
[2018-12-24] MEDS: Alogliptin 25 MG TAB PO SCH (09:35)
[2018-12-24] MEDS: Famotidine 20 MG TAB PO SCH (09:35)
[2018-12-24] MEDS: Polyethylene Glycol 3350 17 GM Packet PO SCH (09:36)
[2018-12-24 12:05] VITALS: TEMP 98.4
[2018-12-24 14:10] VITALS: BP 108/53
--- NOTE | 2018-12-24 22:46 | DIS ---
DATE OF ADMISSION: 12/12/2018 DATE OF DISCHARGE: 12/24/2018 DISCHARGE DIAGNOSES: 1. Acute systolic congestive heart failure, [place] Heart Association class II with ejection fraction of 45% to 50%. 2. Coronary artery disease. 3. Status post coronary artery bypass grafting x4 vessels, 12/16/2018. 4. Diabetes mellitus type 2, stable. 5. Hyperlipidemia. 6. Ischemic cardiomyopathy with ejection fraction of 45% to 50%. 7. Tobacco abuse. 8. Non ST-elevation myocardial infarction. CONSULTATIONS: 1. Dr. Crandall with Cardiothoracic Surgery. 2. Dr. Ortiz with Cardiology Service. PERTINENT LAB AND X-RAY FINDINGS: Hemoglobin A1c 6.9. Troponin I ranged between 0.771 to 2.15. BNP 1196. Total cholesterol 126, triglycerides 104, HDL 30, LDL 75. C difficile antigen and toxin dated 12/23/2018, negative. 2D transthoracic echocardiogram dated 12/13/2018 showed ejection fraction of 40% to 45%. Mild tricuspid regurgitation. HOSPITAL COURSE: The patient was initially admitted after presenting with shortness of breath and fatigue. The patient underwent evaluation with screening metabolic survey showing evidence of non-ST elevation myocardial infarction with elevated troponin I. The patient underwent evaluation by the Cardiology Service with left heart catheterization. The patient was deemed an appropriate candidate and was evaluated by Cardiothoracic Surgery Service. The patient underwent 4-vessel coronary artery bypass grafting on 12/16/2018 with left internal mammary to LAD as well as saphenous vein grafts to the diagonal and distal circumflex. The patient was monitored postoperatively and remained clinically stable. The patient was noted with mild volume overload, receiving IV and oral Lasix therapy with overall decrease in weight from 174 pounds to 151 pounds by the time of discharge. The patient continued cardiac rehabilitation and ambulated without assistance or difficulty and overall, remained clinically stable. I have examined the patient at the time of discharge and discussed followup instructions. The patient verbalized understanding and agreement, ready for discharge on 12/24/2018. DISCHARGE MEDICATIONS: 1. Aspirin 325 mg daily. 2. Lipitor 80 mg p.o. at bedtime. 3. Carvedilol 3.125 mg p.o. b.i.d. 4. Lasix 40 mg p.o. daily. 5. Metformin 1000 mg p.o. b.i.d. 6. Multivitamin 1 tablet p.o. daily. FOLLOWUP: The patient to follow up with Dr. Crandall with Cardiothoracic Surgery Service on 01/06/2019 at 2:00 p.m. The patient will follow up with Dr. Kevin Ash. The patient may also follow up with Dr. Larry Ortiz on 01/09/2019 at 11:45 a.m. CONDITION ON DISCHARGE: Stable. ACTIVITY: Ad-luciano. DIET: Heart-healthy and ADA. CODE STATUS: Full. DISPOSITION: Home on 12/24/2018. TIME SPENT: Total time preparing and coordinating discharge is 33 minutes. Job ID: [id number]
== END 2018-12-24 18:55 | disposition home health service (06) | DRG 233 ==
LOC: ERS 19:30 → 2NO 23:48 → CCU 12-16 07:49 → 2NO 12-18 22:27
PROVIDERS: ADMIT Family Medicine; ATTEND Family Medicine
PROC: 4A023N7 Measurement of Cardiac Sampling and Pressure, Left Heart, Percutaneous Approach (ICD-10-PCS; principal; 2018-12-13)
PROC: B2111ZZ Fluoroscopy of Multiple Coronary Arteries using Low Osmolar Contrast (ICD-10-PCS; 2018-12-13)
PROC: 02100Z9 Bypass Coronary Artery, One Artery from Left Internal Mammary, Open Approach (ICD-10-PCS; 2018-12-16)
PROC: 021209W Bypass Coronary Artery, Three Arteries from Aorta with Autologous Venous Tissue, Open Approach (ICD-10-PCS; 2018-12-16)
PROC: 06BQ4ZZ Excision of Left Saphenous Vein, Percutaneous Endoscopic Approach (ICD-10-PCS; 2018-12-16)
PROC: 5A1221Z Performance of Cardiac Output, Continuous (ICD-10-PCS; 2018-12-16)
PROC: 30233N1 Transfusion of Nonautologous Red Blood Cells into Peripheral Vein, Percutaneous Approach (ICD-10-PCS; 2018-12-16)
DX: I21.4 Non-ST elevation (NSTEMI) myocardial infarction (principal); I50.23 Acute on chronic systolic (congestive) heart failure; I11.0 Hypertensive heart disease with heart failure; E78.00 Pure hypercholesterolemia, unspecified; I25.5 Ischemic cardiomyopathy; E11.9 Type 2 diabetes mellitus without complications; F17.210 Nicotine dependence, cigarettes, uncomplicated; Z82.49 Family history of ischemic heart disease and other diseases of the circulatory system; Z79.4 Long term (current) use of insulin
CPT/HCPCS: 36415; 36416; 36430; 71045; 80048; 80053; 80061; 82553; 82805; 83036; 83735; 83880; 84484; 85025; 85347; 85610; 85730; 86850; 86900; 86901; 87324; 87449; 93005; 93010; 93306; 93458; 93798; 94002; 94150; 94760; 99152; C1769; J0360; J0670; J1100; J1250; J1642; J1644; J1650; J1815; J1825; J1940; J2001; J2150; J2250; J2405; J2440; J2704; J2720; J3010; J3370; J3475; J3480; J7050; P9016; P9047; Q0162; Q9967; S0017; S0028